=== PATIENT | male | born 1940 | race Caucasian/White ===

== ENCOUNTER 2018-07-06 12:29 | Outpatient (REF) | payer MEDICARE, SELFPAY ==
--- NOTE | 2018-07-06 11:40 | SKI_PTH ---
PATIENT: Ad Dodd LOC: [facility] U#:[id number] AGE/SX: 77/M ROOM: RE07/06/[address]: Jose Luis Bustillo MD : [id number] BED: DIS: 07/06/2018 SPEC #: [id number] RECD: 07/06/18 12:52 STATUS: CANDIE MO #: [id number] LUCIEN: 07/06/18 11:[address]: Jose Luis Bustillo DEPT: Surgical Specimen RECD BY: Chrissie Gaines Tissues: 1 - SKIN BIOPSY(SHAVE/PUNCH) Procedures: SKIN LEVEL 4 Comments: [id number]
== END 2018-07-06 12:49 ==
LOC: LBN 12:29
PROVIDERS: PCP Family Medicine; Visit Provider Family Medicine
DX: L82.1 Other seborrheic keratosis (principal)
CPT/HCPCS: 88305

== ENCOUNTER 2018-09-12 12:07 | Outpatient (CLI) | payer MEDICARE, SELFPAY ==
--- NOTE | 2018-09-12 11:18 | DI.RAD_ITS ---
SYMPTOM/DIAGNOSIS: LT SHOULDER PAIN LEFT SHOULDER: There is spurring at the AC joint and glenoid as well as at the greater tuberosity of the humerus. Prominent spurring is seen at the lesser tuberosity. No tendon or joint space calcifications are seen. IMPRESSION: Mild to moderate degenerative changes.
== END 2018-09-12 12:27 ==
PROVIDERS: PCP Family Medicine; Referring Provider Family Medicine; Visit Provider Student in an Organized Health Care Education/Training Program
DX: M25.512 Pain in left shoulder (principal); M19.012 Primary osteoarthritis, left shoulder
CPT/HCPCS: 20610; 99214; 73030; J1040

== ENCOUNTER 2018-10-24 09:49 | Outpatient (CLI) | payer MEDICARE, SELFPAY | END 2018-10-24 10:09 | PROVIDERS: PCP Family Medicine; Referring Provider Family Medicine; Visit Provider Student in an Organized Health Care Education/Training Program | DX: M25.511 Pain in right shoulder (principal); M75.81 Other shoulder lesions, right shoulder; I10 Essential (primary) hypertension | CPT/HCPCS: 99213 ==

== ENCOUNTER → 2018-11-14 13:36 | Outpatient (BNVA) | payer MEDICARE, SELFPAY | PROVIDERS: PCP Family Medicine; Referring Provider Family Medicine; Visit Provider Student in an Organized Health Care Education/Training Program | DX: M75.102 Unspecified rotator cuff tear or rupture of left shoulder, not specified as traumatic (principal); I10 Essential (primary) hypertension | CPT/HCPCS: 99213 ==

== ENCOUNTER → 2019-01-09 12:56 | Outpatient (BNVA) | payer MEDICARE, SELFPAY | PROVIDERS: PCP Family Medicine; Referring Provider Family Medicine; Visit Provider Student in an Organized Health Care Education/Training Program | DX: M75.102 Unspecified rotator cuff tear or rupture of left shoulder, not specified as traumatic (principal); M47.816 Spondylosis without myelopathy or radiculopathy, lumbar region; S46.112A Strain of muscle, fascia and tendon of long head of biceps, left arm, initial encounter; X58.XXXA Exposure to other specified factors, initial encounter; I10 Essential (primary) hypertension | CPT/HCPCS: 99213 ==

== ENCOUNTER 2019-02-09 01:38 | Outpatient (CLI) | payer MEDICARE, SELFPAY ==
--- NOTE | 2019-02-09 08:54 | DI.US_ITS ---
EXAM: US ABDOMEN CLINICAL HISTORY: upper abdominal fullness with pain R10.10 TECHNIQUE: Ultrasound performed using standard protocol. COMPARISON: ABD PELVIS WITH CONTRAST from 05/31/2017 FINDINGS: The aorta is normal in diameter where visualized. There are aortic calcifications. Multiple shadowi ng stones are noted in the gallbladder. There is no abnormal gallbladder distention. There is borde rline wall thickening. There is no pericholecystic fluid. The gallbladder neck is shattered by gall stones. No biliary dilatation is seen. A 2.1 centimeter cyst is seen at the upper pole of the left kidney. There is no evidence of hydronephrosis. No stones are visible. The spleen is at the upper l imits in size and shows normal configuration. IMPRESSION: Cholelithiasis and borderline gallbladder wall thickening. No definite evidence of acute cholecystit is.
[2019-02-09 10:20] LABS: Abs Immature Grans 0.02 k/cumm (0.0-0.09); Absolute Basophil Count 0.02 k/cumm (0.0-0.2); Absolute Eosinophil Count 0.08 k/cumm (0.0-0.7); Absolute Lymphocyte Count 1.37 k/cumm (1.2-3.4); Absolute Monocyte Count 0.53 k/cumm (0.11-0.7); Absolute Neutrophil Count 3.24 k/cumm (1.2-6.7); Basophils % 0.4; Eosinophils % 1.5; HCT 43.3 % (40.0-50.0); Immature Grans % 0.4; Mean Corp. HGB Concentration 34.6 g/dL (32.0-36.0); Mean Corpuscular Hemoglobin 32.1 pg (27.0-33.0); Mean Corpuscular Volume 92.7 fL (80-95); Monocytes % 10.1; Neutrophils % 61.6; Platelet Count 170 x1000/uL (130-400); RBC 4.67 m/cumm (4.50-6.00); RBC Distribution Width 12.7 % (11.8-14.1); White Blood Cell Count 5.26 k/cumm (4.4-10.8)
[2019-02-09 11:55] LABS: ALT 19 U/L (16-63); AST 20 U/L (15-37); Albumin 3.8 g/dL (3.4-5.0); Alkaline Phosphatase 60 U/L (46-116); Anion Gap 13.9 mmol/L (3-11); BUN 17 mg/dL (7-18); Bilirubin, Total 1.2 mg/dL (0.2-1.0); CO2 22.1 mmol/L (21.0-32.0); CREATININE 1.12 mg/dL (0.70-1.30); Calcium 8.8 mg/dL (8.5-10.1); Chloride 104 mmol/L (98-107); Glucose 84 mg/dL (70-100); Potassium 4.7 mmol/L (3.5-5.1); Sodium 140 mmol/L (136-145); TSH (W/Ref FT4) 1.56 uIU/mL (0.36-3.74); Total Protein 6.8 g/dL (6.4-8.2)
== END 2019-02-09 01:58 ==
PROVIDERS: PCP Family Medicine; Visit Provider Family Medicine
DX: R10.10 Upper abdominal pain, unspecified (principal); R19.8 Other specified symptoms and signs involving the digestive system and abdomen; R49.0 Dysphonia; K80.20 Calculus of gallbladder without cholecystitis without obstruction
CPT/HCPCS: 36415; 80053; 76700; 84443; 85025

== ENCOUNTER 2019-02-10 19:20 | Observation (INO) | payer MEDICARE, SELFPAY ==
[2019-02-10 19:21] VITALS: BP 156/60; PULSE 77; RESP 18; TEMP 36.8; O2SAT 100
[2019-02-10 19:27] VITALS: RESP 18
--- NOTE | 2019-02-10 19:36 | NUR.NOTE ---
PATRICIA Stephenson from home with c/o chest pain. Pt reports midsternal chest heaviness x 20 min. Non-radiating. Reports associated dizziness and diaphoresis. relieved with 1 nitro. Hx of 3 stents. SR on monitor, irregular. #18 RAC, labs drawn. LSCTA. Pt reports had labs and US done today for 1.5 months of pain after eating. MD Hightower in to brittney.
[2019-02-10 19:50] LABS: Abs Immature Grans 0.01 k/cumm (0.0-0.09); Absolute Basophil Count 0.01 k/cumm (0.0-0.2); Absolute Eosinophil Count 0.13 k/cumm (0.0-0.7); Absolute Lymphocyte Count 1.81 k/cumm (1.2-3.4); Absolute Monocyte Count 0.55 k/cumm (0.11-0.7); Absolute Neutrophil Count 3.76 k/cumm (1.2-6.7); Basophils % 0.2; Eosinophils % 2.1; HCT 42.4 % (40.0-50.0); HGB 14.6 g/dL (13.5-17.5); Immature Grans % 0.2; Lymphocytes % 28.9; Mean Corp. HGB Concentration 34.4 g/dL (32.0-36.0); Mean Corpuscular Hemoglobin 32.4 pg (27.0-33.0); Mean Platelet Volume 10.1 fL (8.0-11.0); Monocytes % 8.8; Neutrophils % 59.8; Platelet Count 190 x1000/uL (130-400); RBC 4.51 m/cumm (4.50-6.00); RBC Distribution Width 12.8 % (11.8-14.1); White Blood Cell Count 6.27 k/cumm (4.4-10.8)
[2019-02-10 20:00] VITALS: BP 115/74; PULSE 70; RESP 15; O2SAT 97
[2019-02-10 20:03] LABS: ALT 46 U/L (16-63); AST 68 U/L (15-37); Albumin 3.8 g/dL (3.4-5.0); Alkaline Phosphatase 75 U/L (46-116); Anion Gap 7.2 mmol/L (3-11); BUN 22 mg/dL (7-18); Bilirubin, Total 0.5 mg/dL (0.2-1.0); CO2 27.8 mmol/L (21.0-32.0); CREATININE 1.25 mg/dL (0.70-1.30); Calcium 8.9 mg/dL (8.5-10.1); Chloride 107 mmol/L (98-107); Estimated GFR 56.01 (mL/min/1.73m2); Glucose 100 mg/dL (70-100); Sodium 142 mmol/L (136-145); Total Protein 7.2 g/dL (6.4-8.2)
[2019-02-10 20:04] LABS: Troponin I < 0.05 ng/mL (0.00-0.06)
[2019-02-10 20:05] LABS: Lipase 194 U/L (73-393)
--- NOTE | 2019-02-10 20:40 | W.ED.GENAD ---
Discharge Plan Disposition Patient Disposition: [facility] INPATIENT Discharge Details Chief Complaint: Chest Pain Clinical Impression: Chest pain Primary Care Provider: Jose Luis Bustillo ED Provider: Mervin Hightower Home Meds and New Rx's Prescriptions: No Action nitroglycerin 0.4 MG tablet, sublingual 0.4 mg Sublingual q 5 mins prn Qty: 25 RF: 0 omeprazole 40 mg capsule,delayed release(DR/EC) 40 mg PO BID 90 Days Qty: 180 RF: 3 metoprolol tartrate 25 mg tablet 25 mg PO BID Qty: 90 RF: 4 pravastatin [Pravachol] 20 mg tablet 20 mg PO DAILY Qty: 90 RF: 4 Medical Decision Making 21:00 -- 78-year-old male with history of coronary artery disease status post stenting in 2007, GERD, hypertension, hyperlipidemia, presents with mid chest pain, improved after sublingual nitro. Patient has had recent intermittent postprandial epigastric abdominal fullness and discomfort. Currently pain-free. ECG was reviewed and interpreted by me: Sinus rhythm 74 bpm with frequent PACs, normal axis, no STEMI, nondiagnostic. Ultrasound of the abdomen from 02/09/2019 was interpreted by radiology: IMPRESSION: Cholelithiasis and borderline gallbladder wall thickening. No definite evidence of acute cholecystitis. Initial labs reviewed including first troponin negative. Consider ACS versus thoracic aortic dissection versus GERD versus other. Plan to obtain CTA of the chest/abd. --Patient did have a run of regular, narrow complex, tacky arrhythmia at approximately 150 bpm, rhythm strip was reviewed and concerning for SVT. 10:24 --Case is discussed with Dr. Mora, on-call hospitalist, who is here evaluating the patient for admission. Care transitioned to Dr. Mora. Official CTA result pending at time of admission. HPI General Mode of arrival: EMS. Date/Time Provider Initiated Documentation: 02/10/19 19:38. Limitations to Documentation: no limitations. Information obtained by: patient. HPI Narrative: 78-year-old male with history of coronary artery disease status post stenting in 2007 presents with chief complaint of chest pain. Pain started this evening around 6 PM after eating dinner. Pain localized to central chest described as a heavy, pressure. Pain was moderate to severe. Pain lasted approximately 20 to 30 minutes. He did take sublingual nitroglycerin and pain seemed to resolve thereafter. Patient has no pain on arrival. No associated nausea or shortness of breath. Patient also states that recently over the past couple months he has had intermittent postprandial fullness in his epigastric abdomen. He notes he is felt bloated . He saw his primary care physician about this recently and had an outpatient abdominal ultrasound performed yesterday. Related Data Home Medications Medication Instructions Recorded Confirmed nitroglycerin 0.4 mg SUBLINGUAL q 5 mins prn #25 07/15/16 02/10/19 tab-cap omeprazole 40 mg capsule,delayed 40 mg PO BID 90 Days #180 tab-cap 06/29/18 02/10/19 release metoprolol tartrate 25 mg tablet 25 mg PO BID #90 tab 07/06/18 02/10/19 pravastatin 20 mg tablet 20 mg PO DAILY #90 tab 08/25/18 02/10/19 Previous Rx's Medication Instructions Recorded omeprazole 40 mg capsule,delayed 40 mg PO BID 90 Days #180 tab-cap 06/29/18 release metoprolol tartrate 25 mg tablet 25 mg PO BID #90 tab 07/06/18 pravastatin 20 mg tablet 20 mg PO DAILY #90 tab 08/25/18 Allergies Allergy/AdvReac Type Severity Reaction Status Date / Time clopidogrel Allergy Severe RASH Unverified 02/07/19 14:30 tamsulosin AdvReac Intermediate Dizziness Unverified 02/07/19 14:30 simvastatin AdvReac Unknown MUSCLE Unverified 02/07/19 14:30 ACHES atorvastatin AdvReac MUSCLE Unverified 02/07/19 14:30 ACHES General Stated Complaint: Chest Pain ALYX: 2 Review of Systems All systems reviewed & are unremarkable except as noted in HPI and below Constitutional Constitutional: Denies fever(s) Cardiovascular Cardiovascular: Reports chest pain and Denies dyspnea Respiratory Respiratory: Denies dyspnea Gastrointestinal Gastrointestinal: Reports as per HPI [facility] Medical History CAD (coronary artery disease) Carotid artery stenosis Diverticulosis Hypertension Lumbar spondylosis (Acute) Surgical History Colonoscopy - MAC (01/06/16) 2009 CYSTECTOMY/BREAST childhood-removal of cyst left breast EGD - MAC (07/23/17) Extraction of cataract 01/08/14; right 07/30/16;left Stent placement 10/03;angina with 3 stents Family History Sister Neoplasm BREAST Son Asthma Daughter No problems noted. Daughter No problems noted. Social History Smoking/Tobacco Use Status: Former Tobacco Use Alcohol Intake: current Alcohol Intake frequency: a few times a week Drug use: Never Substance use type: does not use Pets and animals: No Current gender identity: male What type of physical activity do you participate in: none Madiha/Voodoo: Zoroastrianism Special madiha needs: No Do you feel safe at home: Yes Do you feel safe in your relationship?: Yes Exam Const General: cooperative and no acute distress HENMT Mouth: moist mucous membranes Eyes Conjunctivae: normal conjunctivae Sclera: normal sclerae Neck Neck: no JVD Resp Auscultation: clear to auscultation bilaterally, no rales, no rhonchi and no wheezes Cardio Jugular venous pressure: no JVD Rate: regular rate and not tachycardic Rhythm: regular rhythm GI Palpation: soft, not firm, no guarding, no masses, not rigid and tender in the epigastrum (some discomfort); with no rebound tenderness Auscultation: normal bowel sounds Skin General skin exam: no rashes or lesions noted Neuro General: alert, awake, oriented x3 and tone normal Extrem General: no edema Psych Appearance: grossly normal Course Vital Signs Vital signs: Vital Signs Temperature 36.8 C 02/10/19 19:21 Pulse 77 02/10/19 19:21 Respiratory Rate 18 02/10/19 19:21 Blood Pressure 156/60 H 02/10/19 19:21 Pulse Oximetry 100 02/10/19 19:21 Temperature 36.8 C 02/10/19 19:21 Temperature Source Skin 02/10/19 19:21 Pulse 77 02/10/19 19:21 Respiratory Rate 18 02/10/19 19:27 Respiratory Effort 02/10/19 19:27 Respiratory Depth Normal 02/10/19 19:27 Respiratory Pattern Normal 02/10/19 19:27 Blood Pressure 156/60 H 02/10/19 19:21 Blood Pressure Position Supine 02/10/19 19:21 Pulse Oximetry 100 02/10/19 19:21 Oxygen Delivery Method Room Air 02/10/19 19:21 Oxygen Flow Rate 0 02/10/19 19:21 Pain Level 0 02/10/19 19:21 Lab/Test Results Lab/Test Results: Laboratory Tests Range/Units 02/10/19 02/10/19 02/10/19 19:25 19:25 19:25 WBC (4.4-10.8) k/cumm 6.27 RBC (4.50-6.00) m/cumm 4.51 Hgb (13.5-17.5) g/dL 14.6 Hct (40.0-50.0) % 42.4 MCV (80-95) fL 94.0 MCH (27.0-33.0) pg 32.4 MCHC (32.0-36.0) g/dL 34.4 RDW (11.8-14.1) % 12.8 Plt Count (130-400) x1000/uL 190 MPV (8.0-11.0) fL 10.1 Immature Gran % 0.2 Neutrophils % 59.8 Lymphocytes % 28.9 Monocytes % 8.8 Eosinophils % 2.1 Basophils % 0.2 Absolute Neutrophils (1.2-6.7) k/cumm 3.76 Absolute Lymphocytes (1.2-3.4) k/cumm 1.81 Absolute Monocytes (0.11-0.7) k/cumm 0.55 Absolute Eosinophils (0.0-0.7) k/cumm 0.13 Absolute Basophils (0.0-0.2) k/cumm 0.01 Sodium (136-145) mmol/L 142 Potassium (3.5-5.1) mmol/L 4.0 Chloride (98-107) mmol/L 107 Carbon Dioxide (21.0-32.0) mmol/L 27.8 Anion Gap (3-11) mmol/L 7.2 BUN (7-18) mg/dL 22 H Creatinine (0.70-1.30) mg/dL 1.25 Estimated GFR/1.73 m2 (mL/min/1.73m2) 56.01 Glucose (70-100) mg/dL 100 Calcium (8.5-10.1) mg/dL 8.9 Total Bilirubin (0.2-1.0) mg/dL 0.5 AST (15-37) U/L 68 H ALT (16-63) U/L 46 Alkaline Phosphatase (46-116) U/L 75 Troponin I (0.00-0.06) ng/mL < 0.05 Total Protein (6.4-8.2) g/dL 7.2 Albumin (3.4-5.0) g/dL 3.8 Lipase (73-393) U/L 194
[2019-02-10 21:00] VITALS: BP 118/61; PULSE 68; RESP 16; O2SAT 98
[2019-02-10] MEDS: Omnipaque 350 MG/ML 100 ML BTL IJ (21:40)
--- NOTE | 2019-02-10 21:41 | DI.CT_ITS ---
EXAM: CT THORAX AND ABD/PEL CTA CLINICAL HISTORY: chest pain, abdominal fullness TECHNIQUE: 100 cc of Omnipaque [address] angiography was performed with multi-slice acquisit ion and multi-planar and/or 3D reconstructions. COMPARISON: ABD AND PELVIS WITH CONTRAST from 05/31/2017 FINDINGS: There is no evidence of pulmonary emboli or aortic dissection. There is left atrial and biventricula r enlargement. Coronary artery calcifications are seen. The lungs appear clear. There is a stable 5 millimeter nodule at the left lung base and a stable 6 millimeter nodule in the right middle lobe. The aorta shows calcification and mild mural thrombus but no evidence of an aneurysm. There is no si gnificant reduction in luminal diameter of the aorta or iliac arteries. Celiac, SMA and renal arteri es show no occlusion or significant stenosis. Liver shows mild fatty infiltration. The gallbladder, spleen, pancreas and adrenals are unremarkable. There is a cyst at the upper pole of the right kidn ey. There is no evidence of hydronephrosis. The prostate is enlarged. The bladder is unremarkable. The appendix appears normal. There is diverticulosis of the sigmoid but no evidence of diverticulit is. There is no free air, free fluid or adenopathy. There are no spinal compression fractures. Ost eophytes are noted throughout the spine. IMPRESSION: No evidence of pulmonary emboli, aortic dissection or other acute abnormality.
[2019-02-10 22:18] VITALS: BP 115/66; PULSE 73; RESP 16; O2SAT 99
--- NOTE | 2019-02-10 22:35 | HPE_ITS ---
Date of service: 02/10/19 Time of Service: 22:35 Assessment and Plan Assessment and plan (1) Abdominal pain: Status: Acute Assessment and plan: It is certainly possible that this represents ACS but I think this is doubtful. I think most likely this is either biliary colic or esophageal spasm. Will complete r/o by enzymes, continue PPI and would consider referral to surgery for elective cholycystectomy. I do note that the minimal increase in AST. Could conceivably be reflective of transient biliary obstruction but in any case will just repeat in AM. ADs reviewed with patient, requests DNR. History of Present Illness History of Present Illness Chief Complaint: abdominal pain Narrative: 78 male with remote h/o CAD, s/p stent 2007. . Has been having 2 months of episodic epigastric pain, non-radiating. Typically after meals. U/S done earlier today showed multiple gall stones.Tonight had a severe such episode, no associated naussea or SOB, lasting 1/2 hour. Took old NTG x 2 (no tingling under tongue), pain neventually resolved. Here in ER w/u of note for negative EKG and troponin 1. Informal ER reliminary on CTA of chest is negative. Admitted for r/o. Patient states that pain he has been having -- tonight and otherwise -- is different from the pain he had in 2007 when he was stented. Note brief run SVT here in ER. Asymptomatic and, patient reports, not uncommon for him. Review of Systems All systems reviewed & are unremarkable except as noted in HPI and below PFSH Medical History CAD (coronary artery disease) Carotid artery stenosis Diverticulosis Hypertension Lumbar spondylosis (Acute) Surgical History Colonoscopy - MAC (01/06/16) 2009 CYSTECTOMY/BREAST childhood-removal of cyst left breast EGD - MAC (07/23/17) Extraction of cataract 01/08/14; right 07/30/16;left Stent placement 10/03;angina with 3 stents Family History Sister Neoplasm BREAST Son Asthma Daughter No problems noted. Daughter No problems noted. Social History Smoking/Tobacco Use Status: Former Tobacco Use Alcohol Intake: current Alcohol Intake frequency: a few times a week Drug use: Never Substance use type: does not use Pets and animals: No Current gender identity: male What type of physical activity do you participate in: none Madiha/Restoration: [employer] Special madiha needs: No Do you feel safe at home: Yes Do you feel safe in your relationship?: Yes Meds Home Medications and Allergies Home Medications Medication Instructions Recorded Confirmed Type nitroglycerin 0.4 mg SUBLINGUAL q 5 mins prn #25 07/15/16 02/10/19 History tab-cap omeprazole 40 mg capsule,delayed 40 mg PO BID 90 Days #180 tab-cap 06/29/18 02/10/19 Rx release metoprolol tartrate 25 mg tablet 25 mg PO BID #90 tab 07/06/18 02/10/19 Rx pravastatin 20 mg tablet 20 mg PO DAILY #90 tab 08/25/18 02/10/19 Rx Allergies Allergy/AdvReac Type Severity Reaction Status Date / Time clopidogrel Allergy Severe RASH Unverified 02/07/19 14:30 tamsulosin AdvReac Intermediate Dizziness Unverified 02/07/19 14:30 simvastatin AdvReac Unknown MUSCLE Unverified 02/07/19 14:30 ACHES atorvastatin AdvReac MUSCLE Unverified 02/07/19 14:30 ACHES Exam Narrative Exam Narrative: 115/66, 73, 16, 36.8. HEENT AT/NC; neck supple, w/o JVD; lungs clear; heart RRR w/o m/r/g; abdomen soft and NT; /rectal deferred; extremities w/o edema pulses 2+/=; neuro non-focal. Results Labs Result diagrams: 02/10/19 19:25 02/10/19 19:25 Labs: Laboratory Results - last 24 hr 02/10/19 02/10/19 02/10/19 19:25 19:25 19:25 WBC 6.27 RBC 4.51 Hgb 14.6 Hct 42.4 MCV 94.0 MCH 32.4 MCHC 34.4 RDW 12.8 Plt Count 190 MPV 10.1 Immature Gran % 0.2 Neutrophils % 59.8 Lymphocytes % 28.9 Monocytes % 8.8 Eosinophils % 2.1 Basophils % 0.2 Absolute Neutrophils 3.76 Absolute Lymphocytes 1.81 Absolute Monocytes 0.55 Absolute Eosinophils 0.13 Absolute Basophils 0.01 Sodium 142 Potassium 4.0 Chloride 107 Carbon Dioxide 27.8 Anion Gap 7.2 BUN 22 H Creatinine 1.25 Estimated GFR/1.73 m2 56.01 Glucose 100 Calcium 8.9 Total Bilirubin 0.5 AST 68 H ALT 46 Alkaline Phosphatase 75 Troponin I < 0.05 Total Protein 7.2 Albumin 3.8 Lipase 194 Last Vital Signs Temp 36.8 C 02/10/19 19:21 Pulse 73 02/10/19 22:18 Resp 16 02/10/19 22:18 BP 115/66 02/10/19 22:18 Pulse Ox 99 02/10/19 22:18
--- NOTE | 2019-02-10 22:40 | DI.VRAD_ITS ---
PROCEDURE INFORMATION: Exam: CT Angiography Chest With Contrast Exam date and time: 02/10/2019 8:53 PM Clinical history: 78 years old, male; Chest pain; Radiating; Abdominal pain; Generalized; Prior surgery; Surgery date: 6+ months; Surgery type: Heart stents TECHNIQUE: Imaging protocol: Computed tomographic angiography of the chest with intravenous contrast. 3D rendering: MIP reconstructed images were created and reviewed. Radiation optimization: All CT scans at this facility use at least one of these dose optimization techniques: automated exposure control; mA and/or kV adjustment per patient size (includes targeted exams where dose is matched to clinical indication); or iterative reconstruction. Contrast material: [id number]; Contrast volume: 100 ml; Contrast route: IV RAC 18G; COMPARISON: CR CHEST 2 VIEWS PA,LAT 09/20/2014 8:36 AM FINDINGS: Pulmonary arteries: No pulmonary artery filling defects to the segmental level. Evaluation more distally limited due to suboptimal bolus timing for evaluation of pulmonary artery lumens. Aorta: No aortic aneurysm or dissection. Lungs: There is minimal bibasilar atelectasis. Subpleural 6 mm nodule right middle lobe. 5 mm pleural-based nodule left lung base. Pleural space: No pneumothorax. No pleural effusion Heart: Heart normal in size.There are coronary artery calcifications. Stents suspected in LAD and circumflex vessels. No pericardial effusion. Lymph nodes: Unremarkable. No enlarged lymph nodes. Bones/joints: Unremarkable. No acute fracture. Soft tissues: Unremarkable. IMPRESSION: 1. No evidence of a pulmonary embolism to the segmental level. Evaluation more distally limited. 2. Bilateral lung nodules. The patient is at increased risk for developing lung cancer, followup CT of the chest is recommended in 1 year. PROCEDURE INFORMATION: Exam: CT Angiography Abdomen and Pelvis With Contrast Exam date and time: 02/10/2019 8:53 PM Clinical history: 78 years old, male; Chest pain; Radiating; Abdominal pain; Generalized; Prior surgery; Surgery date: 6+ months; Surgery type: Heart stents TECHNIQUE: Imaging protocol: Computed tomographic angiography of the abdomen and pelvis with intravenous contrast material. 3D rendering: MIP reconstructed images were created and reviewed. Radiation optimization: All CT scans at this facility use at least one of these dose optimization techniques: automated exposure control; mA and/or kV adjustment per patient size (includes targeted exams where dose is matched to clinical indication); or iterative reconstruction. Contrast material: [id number]; Contrast volume: 100 ml; Contrast route: IV RAC 18G; COMPARISON: CR CHEST 2 VIEWS PA,LAT 09/20/2014 8:36 AM FINDINGS: VASCULATURE: Aorta: No aortic aneurysm or dissection. Atherosclerosis. Celiac trunk and mesenteric arteries: No occlusion or significant stenosis. Renal arteries: No occlusion or significant stenosis. Right iliac arteries: No occlusion or significant stenosis. Left iliac arteries: No occlusion or significant stenosis. ABDOMEN and PELVIS: Liver: Hepatomegaly. No mass. Gallbladder and bile ducts: The gallbladder is normal. There is no evidence of biliary ductal dilation. Pancreas: The pancreas is normal. No ductal dilatation. Spleen: The spleen is normal. 1 cm splenule. Adrenals: The adrenal glands are normal. Kidneys and ureters: Simple 2.2 cm cyst left kidney. Lesion too small to characterize in right kidney. Both kidneys concentrate and excrete contrast. No hydronephrosis. Stomach and bowel: Minimal gastric distention. No obstruction. No mucosal thickening. Colonic diverticula. Appendix: No evidence of appendicitis. Intraperitoneal space: Unremarkable. No free air. No significant fluid collection. Lymph nodes: Unremarkable. No enlarged lymph nodes. Bladder: Unremarkable. No mass. Reproductive: Enlarged prostate. Bones/joints: No acute fracture. No dislocation. Mild posterior subluxation of L5 with respect to L4 and S1. The spine demonstrates moderate degenerative changes at multiple levels. Soft tissues: Unremarkable. IMPRESSION: 1. Hepatomegaly. 2. Minimal gastric distention. 3. Colonic diverticula. 4. Enlarged prostate. Dictated and Authenticated by: Arron Ochoa MD. Ordering:LEROY Jeffries MD
[2019-02-10 23:33] LABS: Troponin I < 0.05 ng/mL (0.00-0.06)
[2019-02-10 23:35] VITALS: BP 122/69; PULSE 68; RESP 16; TEMP 36.4; O2SAT 96
--- NOTE | 2019-02-10 23:36 | NUR.NOTE ---
Remains pain free. Report to Freddie. Transported to 230 via stretcher on tele.
[2019-02-11] VITALS (7 sets, daily range): BP systolic 100–148; BP diastolic 67–73; PULSE 62–146; RESP 17–18; TEMP 36.4–37; O2SAT 98–100
[2019-02-11 07:44] LABS: Troponin I < 0.05 ng/mL (0.00-0.06)
[2019-02-11] MEDS: Omeprazole 20 MG CAPCR 40 MG PO (07:51)
[2019-02-11] MEDS: Metoprolol 25 MG TAB PO (07:52)
[2019-02-11 11:02] LABS: Abs Immature Grans 0.01 k/cumm (0.0-0.09); Absolute Basophil Count 0.02 k/cumm (0.0-0.2); Absolute Eosinophil Count 0.11 k/cumm (0.0-0.7); Absolute Lymphocyte Count 1.86 k/cumm (1.2-3.4); Absolute Monocyte Count 0.56 k/cumm (0.11-0.7); Absolute Neutrophil Count 2.99 k/cumm (1.2-6.7); Basophils % 0.4; HCT 43.6 % (40.0-50.0); HGB 14.6 g/dL (13.5-17.5); Immature Grans % 0.2; Lymphocytes % 33.5; Mean Corp. HGB Concentration 33.5 g/dL (32.0-36.0); Mean Corpuscular Hemoglobin 32.1 pg (27.0-33.0); Mean Corpuscular Volume 95.8 fL (80-95); Mean Platelet Volume 10.4 fL (8.0-11.0); Monocytes % 10.1; Neutrophils % 53.8; Platelet Count 165 x1000/uL (130-400); RBC 4.55 m/cumm (4.50-6.00); RBC Distribution Width 13.1 % (11.8-14.1); White Blood Cell Count 5.55 k/cumm (4.4-10.8)
[2019-02-11 11:07] LABS: Anion Gap 6.4 mmol/L (3-11); BUN 19 mg/dL (7-18); CO2 29.6 mmol/L (21.0-32.0); CREATININE 1.02 mg/dL (0.70-1.30); Chloride 106 mmol/L (98-107); Glucose 94 mg/dL (70-100); Magnesium 2.1 mg/dL (1.8-2.4); Potassium 4.4 mmol/L (3.5-5.1); Sodium 142 mmol/L (136-145)
--- NOTE | 2019-02-11 12:30 | DSE_ITS ---
Date of service: 02/11/19 Time of Service: 12:53 DS: Diagnosis Discharge Diagnosis (1) Abdominal pain: Start date: 02/11/19 Start time: 12:53 Status: Acute Asessment and Plan: Resolved last night, refer to surgery for questionable cholithiasis, bilary colic. Will also give maylox with lidocaine for epigastric pain. Discharge Plan Disposition Patient Disposition: HOME Condition: Improving Discharge Details Chief Complaint: Chest Pain Clinical Impression: Chest pain Reason For Visit: ABDOMINAL PAIN Admit Date/Time: 02/10/19 22:50 Admit Provider: Tim Mora Attending Provider: Tim Mora Primary Care Provider: Jose Luis Bustillo ED Provider: Mervin Hightower [facility] Hospital Course: 78 y.o M with PMH CAD s/p stent 2007. Patient was admitted from [facility] Emergency department for epigastric pain. He did have a run of SVT in the ER as well and therefore admitted for further management. EKG was negative. Troponins have been flat negative. He did have several short runs of SVT, which he is on a bb for. He will need an outpatient stress test, which will schedule for him. He denies CP, SOB. Pressure to epigastric area this am, given a combination lidocaine and mylanta with good relief. Abdominal u/s revealing cholelithiasis and borderline gallbladder wall thickening, refer to surgery. Patient will schedule follow up as referral has already been made by primary. Will continue lidocaine and mylanta for home with carafate. CT last night revealed no PE, bilateral lung nodules, increased risk for developing lung ca, follow up CT of chest is recommend in 1 year. Recommend he follow up with Pulmonary for evaluation of lung nodules, this can be done through his primary. He would like to go home he feels well. He denies N/V/D. Home Meds and New Rx's Prescriptions: New sucralfate [Carafate] 1 gram tablet 1 gm PO QAC Qty: 90 RF: 0 Mylanta Maximum Strength 400-400-40 mg/5 mL suspension 5 ml PO QID PRN (Reason: indigestion) Qty: 355 RF: 0 Lidocaine Viscous 2 % solution 1 applic MM QID PRN (Reason: indigestion) Qty: 100 RF: 0 Continued nitroglycerin 0.4 MG tablet, sublingual 0.4 mg Sublingual q 5 mins prn Qty: 25 RF: 0 omeprazole 40 mg capsule,delayed release(DR/EC) 40 mg PO BID 90 Days Qty: 180 RF: 3 metoprolol tartrate 25 mg tablet 25 mg PO BID Qty: 90 RF: 4 pravastatin [Pravachol] 20 mg tablet 20 mg PO DAILY Qty: 90 RF: 4 Discharge Instructions Instructions: Supraventricular Tachycardia (GEN), Cardiac Stress Test (GEN), Biliary Colic (GEN), Gallstones (GEN), Indigestion (GEN), Pulmonary Nodules (GEN) Additional Instructions: Follow up with Surgery. Call and make an appointment. Ask your Primary provider about a follow up with a lung specialist. You were found to have nodules on both lungs. I have referred you for a stress test for this week. They will call you from [facility] to schedule a time. You have been started on carafate. Take it before every meal. You have been given lidocaine and mylanta, you can take it up to 4 times a day as needed for GI upset, pain and indigestion. Seek medical attention immediately if you have Chest pain, Shortness of breath, belly pain that is not relieved by any medication. Stick to a low fat diet as you were found to have gallbladder stones and eating a fatty diet can cause you pain. Stand Alone Forms: Nursing Discharge Form Referrals: Jose Luis Bustillo [Primary Care Provider] - (Please call PCP on Wednesday to schedule follow up appointment.) Activity:: Activity as Tolerated Equipment/Supplies:: No Equipment Needed Diet:: Low fat diet Discharge Orders Discharge Orders: Discharge Order (Routine); Ordered 02/11/19 Ordered By: Nory Cooley Other Ambulatory Orders: NM MPI rest & stress grp (Routine) Timeframe: [id number] Location: None Selected Ordered By: Nory Cooley DS: Summary Status at Discharge Functional status at discharge: independent ambulation Overall status at discharge: patient is back to baseline Mental Status: mental status grossly normal Speech and Movement: speech and movement normal Mood: congruent mood Affect: normal affect Exam Narrative Exam Narrative: Const: Elderly gentleman sitting up in chair eager to go home. HEENT: [place], AT/NC; neck supple, w/o JVD; lungs clear; heart RRR w/o m/r/g; abdomen soft and NT; /rectal deferred; extremities w/o edema pulses 2+/=; neuro non-focal. Psych Mental Status: mental status grossly normal Speech and Movement: speech and movement normal Mood: congruent mood Affect: normal affect DS: Data Vitals/I&O Vitals and I&O: Vital Signs Temperature 36.9 C 02/11/19 07:49 Temperature Source Tympanic 02/11/19 07:49 Pulse 63 02/11/19 11:02 Pulse Rhythm Irregular 02/11/19 07:30 Respiratory Rate 17 02/11/19 07:49 Respiratory Effort Non-Labored 02/11/19 07:30 Respiratory Depth Normal 02/11/19 07:30 Respiratory Pattern Normal 02/11/19 07:30 Blood Pressure 125/72 02/11/19 07:49 Blood Pressure Position Supine 02/10/19 19:21 Pulse Oximetry 100 02/11/19 07:49 Oxygen Delivery Method Room Air 02/11/19 07:49 Oxygen Flow Rate 0 02/11/19 07:49 Pain Level 4 02/11/19 09:05 Intake & Output 02/10/19 02/11/19 02/11/19 23:59 11:59 23:59 Intake Total 570 / 570 Balance 570 / 570 Weight 87.5 kg 87.5 kg Intake: Oral 570 / 570 Other: Urine Color Yellow Urine Appearance Clear Urine Odor Normal Voiding Methods Toilet Data Completed and Pending Completed studies during hospitalization [Text1]: Exam(s) a US:US abdomen EXAM: US ABDOMEN CLINICAL HISTORY: upper abdominal fullness with pain R10.10 TECHNIQUE: Ultrasound performed using standard protocol. COMPARISON: ABD PELVIS WITH CONTRAST from 05/31/2017 FINDINGS: The aorta is normal in diameter where visualized. There are aortic calcifications. Multiple shadowing stones are noted in the gallbladder. There is no abnormal gallbladder distention. There is borderline wall thickening. There is no pericholecystic fluid. The gallbladder neck is shattered by gallstones. No biliary dilatation is seen. A 2.1 centimeter cyst is seen at the upper pole of the left kidney. There is no evidence of hydronephrosis. No stones are visible. The spleen is at the upper limits in size and shows normal configuration. IMPRESSION: Cholelithiasis and borderline gallbladder wall thickening. No definite evidence of acute cholecystitis. Exam(s) PROCEDURE INFORMATION: Exam: CT Angiography Chest With Contrast Exam date and time: 02/10/2019 8:53 PM Clinical history: 78 years old, male; Chest pain; Radiating; Abdominal pain; Generalized; Prior surgery; Surgery date: 6+ months; Surgery type: Heart stents TECHNIQUE: Imaging protocol: Computed tomographic angiography of the chest with intravenous contrast. 3D rendering: MIP reconstructed images were created and reviewed. Radiation optimization: All CT scans at this facility use at least one of these dose optimization techniques: automated exposure control; mA and/or kV adjustment per patient size (includes targeted exams where dose is matched to clinical indication); or iterative reconstruction. Contrast material: [id number]; Contrast volume: 100 ml; Contrast route: IV RAC 18G; COMPARISON: CR CHEST 2 VIEWS PA,LAT 09/20/2014 8:36 AM FINDINGS: Pulmonary arteries: No pulmonary artery filling defects to the segmental level. Evaluation more distally limited due to suboptimal bolus timing for evaluation of pulmonary artery lumens. Aorta: No aortic aneurysm or dissection. Lungs: There is minimal bibasilar atelectasis. Subpleural 6 mm nodule right middle lobe. 5 mm pleural-based nodule left lung base. Pleural space: No pneumothorax. No pleural effusion Heart: Heart normal in size.There are coronary artery calcifications. Stents suspected in LAD and circumflex vessels. No pericardial effusion. Lymph nodes: Unremarkable. No enlarged lymph nodes. Bones/joints: Unremarkable. No acute fracture. Soft tissues: Unremarkable. IMPRESSION: 1. No evidence of a pulmonary embolism to the segmental level. Evaluation more distally limited. 2. Bilateral lung nodules. The patient is at increased risk for developing lung cancer, followup CT of the chest is recommended in 1 year. Labs on day of discharge: Labs from last 24 hours 02/11/19 02/11/19 02/11/19 07:00 07:00 06:35 WBC 5.55 RBC 4.55 Hgb 14.6 Hct 43.6 MCV 95.8 H MCH 32.1 MCHC 33.5 RDW 13.1 Plt Count 165 MPV 10.4 Immature Gran % 0.2 Neutrophils % 53.8 Lymphocytes % 33.5 Monocytes % 10.1 Eosinophils % 2.0 Basophils % 0.4 Absolute Neutrophils 2.99 Absolute Lymphocytes 1.86 Absolute Monocytes 0.56 Absolute Eosinophils 0.11 Absolute Basophils 0.02 Sodium 142 Potassium 4.4 Chloride 106 Carbon Dioxide 29.6 Anion Gap 6.4 BUN 19 H Creatinine 1.02 Estimated GFR/1.73 m2 >= 60.00 Glucose 94 Calcium 9.0 Magnesium 2.1 Total Bilirubin AST ALT Alkaline Phosphatase Troponin I < 0.05 Total Protein Albumin Lipase 02/10/19 02/10/19 02/10/19 23:12 19:25 19:25 WBC 6.27 RBC 4.51 Hgb 14.6 Hct 42.4 MCV 94.0 MCH 32.4 MCHC 34.4 RDW 12.8 Plt Count 190 MPV 10.1 Immature Gran % 0.2 Neutrophils % 59.8 Lymphocytes % 28.9 Monocytes % 8.8 Eosinophils % 2.1 Basophils % 0.2 Absolute Neutrophils 3.76 Absolute Lymphocytes 1.81 Absolute Monocytes 0.55 Absolute Eosinophils 0.13 Absolute Basophils 0.01 Sodium Potassium Chloride Carbon Dioxide Anion Gap BUN Creatinine Estimated GFR/1.73 m2 Glucose Calcium Magnesium Total Bilirubin AST ALT Alkaline Phosphatase Troponin I < 0.05 Total Protein Albumin Lipase 194 02/10/19 19:25 WBC RBC Hgb Hct MCV MCH MCHC RDW Plt Count MPV Immature Gran % Neutrophils % Lymphocytes % Monocytes % Eosinophils % Basophils % Absolute Neutrophils Absolute Lymphocytes Absolute Monocytes Absolute Eosinophils Absolute Basophils Sodium 142 Potassium 4.0 Chloride 107 Carbon Dioxide 27.8 Anion Gap 7.2 BUN 22 H Creatinine 1.25 Estimated GFR/1.73 m2 56.01 Glucose 100 Calcium 8.9 Magnesium Total Bilirubin 0.5 AST 68 H ALT 46 Alkaline Phosphatase 75 Troponin I < 0.05 Total Protein 7.2 Albumin 3.8 Lipase [facility] Medical History CAD (coronary artery disease) Carotid artery stenosis Diverticulosis Hypertension Lumbar spondylosis (Acute) Surgical History Colonoscopy - MAC (01/06/16) 2009 CYSTECTOMY/BREAST childhood-removal of cyst left breast EGD - MAC (07/23/17) Extraction of cataract 01/08/14; right 07/30/16;left Stent placement 10/03;angina with 3 stents Family History Sister Neoplasm BREAST Son Asthma Daughter No problems noted. Daughter No problems noted. Social History Smoking/Tobacco Use Status: Former Tobacco Use Alcohol Intake: current Alcohol Intake frequency: a few times a week Drug use: Never Substance use type: does not use Pets and animals: No Current gender identity: male What type of physical activity do you participate in: none Madiha/Yazidi: Bahai Special madiha needs: No Do you feel safe at home: Yes Do you feel safe in your relationship?: Yes
== END 2019-02-11 14:06 | disposition home or self-care (01) ==
LOC: ER 23:13 → MS 23:45
PROVIDERS: Nurse Practitioner Family; Admitting Provider General Practice; Emergency Provider Student in an Organized Health Care Education/Training Program; PCP Family Medicine; Visit Provider Internal Medicine
DX: R10.13 Epigastric pain (principal); I47.1 Supraventricular tachycardia; K80.20 Calculus of gallbladder without cholecystitis without obstruction; Z23 Encounter for immunization
CPT/HCPCS: 36415; 71275; 74177; 80048; 80053; 83690; 93005; 99222; 99239; 99285; 83735; 84484; 85025; 93010; 99217; 99218; G0378; J3490

== ENCOUNTER 2019-02-16 02:06 | Outpatient (CLI) | payer MEDICARE, SELFPAY ==
--- NOTE | 2019-02-16 09:15 | DI.NM_ITS ---
APPROVED REPORT Exam: Pharmacologic Patient Location: Out-Patient Room/Bed: Stress Nurse: Alexus Hunt RN BMI: 284.24 Baseline Rhythm: Sinus rhythm with PACs. Indications: SVT. CAD. Medical History Cardiac Medications: Pravastatin, Nitroglycerin, Metoprolol, Omeprazole, Allergies: clopidegrel. tamsulosin. simvastatin. atorvastatin. Cardiac Risk Factors: Cardiac stents x3 in 2007, CAD, SVT, HTN, Hyperlipidemia, CVD, former smoker Previous Cardiac Procedures: PCI Pretest Chest Pain Characteristics: No chest pain Physical Disabilities: Legs Lung Sounds: Clear to auscultation Heart Sounds: Regular Stress Test Details Test: Pharmacologic stress testing performed using 0.4 mg of regadenoson per 5 mL given IV over 10 s econds. Nuclear Acquisition: Rest Tc-99m/Stress Tc-99m 1 day Rest Isotope: Tc-99m Sestamibi. Dose: 11.0 Date: 02/16/2019 Injection Time: 0945 Stress Isotope: Tc-99m Sestamibi. Dose: 33.3 Date: 02/16/2019 Injection Time: 1130 HR Resting HR: 60 bpm Max Heart Rate (APMHR): 143 bpm Resting HR Supine: 60 bpm Target HR (85% APMHR): 121 bpm Max HR Achieved: 83 bpm % of APMHR: 58 Recovery HR: 75 bpm BP Resting BP: 154/80 mmHg Resting BP Supine: 154/80 mmHg Max BP: 168/80 mmHg Recovery BP: 150/80 mmHg ECG Resting ECG: Sinus Rhythm with PACs. Ectopy: PACs. Stress ECG: Sinus Rhythm with PACs. ST Change: No significant ST segment changes Recovery ECG: Sinus Rhythm Recovery ST Change: Sinus Rhythm with PACs. Stress ECG Conclusion 1. There is no evidence of stress induced ischemia on the ECG portion of the exam Protocol Used: Regadenoson Stress Test Summary STAGE HR BP Symptoms NOTES Supine 60 154/80 Standing 1 min 69 168/84 2 min 3 min 83 138/80 4 min 5 min 6 min 75 150/80 7 min 8 min 9 min 10 min 1 min recovery 3 min recovery 6 min recovery MPI Conclusion There is no significant ischemia on the imaging portion of this exam Ejection fraction with stress is 46% This represents a normal SPECT exam.
[2019-02-16] MEDS: Regadenoson 0.4 MG/5 ML SYR IVP (11:02)
== END 2019-02-16 02:26 ==
PROVIDERS: PCP Family Medicine; Visit Provider Internal Medicine
DX: I25.10 Atherosclerotic heart disease of native coronary artery without angina pectoris (principal); I47.1 Supraventricular tachycardia; I10 Essential (primary) hypertension; E78.5 Hyperlipidemia, unspecified; Z95.5 Presence of coronary angioplasty implant and graft; Z87.891 Personal history of nicotine dependence
CPT/HCPCS: 78452; 93016; 93018; 93017; J2785

== ENCOUNTER → 2019-02-20 10:45 | Outpatient (BNVA) | payer MEDICARE, SELFPAY | PROVIDERS: PCP Family Medicine; Referring Provider Family Medicine; Visit Provider Surgery | DX: K80.20 Calculus of gallbladder without cholecystitis without obstruction (principal); I10 Essential (primary) hypertension; R49.0 Dysphonia | CPT/HCPCS: 99214 ==

== ENCOUNTER 2019-03-14 07:47 | Day surgery (SDC) | payer MEDICARE, SELFPAY ==
[2019-03-14] VITALS (10 sets, daily range): BP systolic 84–131; BP diastolic 30–86; PULSE 54–63; RESP 13–19; TEMP 36.2–36.8; O2SAT 95–100
[2019-03-14] MEDS: Lactated Ringers 1,000 ML 80 ML IV ×2 (08:38→10:49)
[2019-03-14] MEDS: ceFAZolin 2 GM/50 ML BAG IVPB (09:44)
--- NOTE | 2019-03-14 10:40 | GB_PTH ---
PATIENT: Ad Dodd LOC: [facility] U#:[id number] AGE/SX: 78/M ROOM: RE03/14/[address]: Laura Cheema MD : [id number] BED: DIS: 03/14/2019 SPEC #: [id number] RECD: 03/14/19 13:00 STATUS: CANDIE REFili #: [id number] LUCIEN: 03/14/19 10:[address]: Laura Cheema DEPT: Surgical Specimen RECD BY: Chrissie Gaines ENTERED: 03/14/19 13:01 SP TYPE: GB OTHR DR: Jose Luis Bustillo MD Tissues: 1 - GALLBLADDER Procedures: GROSS AND MICRO LEVEL 3 Comments: [id number]
--- NOTE | 2019-03-14 10:53 | W.PM.DSUDISC ---
Discharge Plan Disposition Patient Disposition: HOME Condition: Good Discharge Details Reason For Visit: Laparoscopic cholecystectomy Attending Provider: Laura Cheema Primary Care Provider: Jose Luis Bustillo Home Meds and New Rx's Prescriptions: New hydrocodone-acetaminophen 5-325 mg Tablet 1 tab PO Q4H PRN (Reason: Pain) Qty: 15 RF: 0 Continued sucralfate [Carafate] 1 gram tablet 1 gm PO QAC RF: 0 azithromycin 250 mg tablet See Rx Instructions PO .COMPLEX Qty: 6 RF: 0 metoprolol tartrate 25 mg tablet 25 mg PO BID Qty: 90 RF: 4 pravastatin [Pravachol] 20 mg tablet 20 mg PO DAILY Qty: 90 RF: 4 nitroglycerin 0.4 mg tablet, sublingual 0.4 mg Sublingual q 5 mins prn Qty: 25 RF: 5 omeprazole 40 mg capsule,delayed release(DR/EC) 40 mg PO DAILY RF: 0 Discharge Instructions Additional Instructions: The top bandage can be removed tomorrow. The steri strips will usually stick for about a week. When the edges start to curl up, they can be removed. It is okay to shower tomorrow, the water can run over the steri strips Do not swim or soak in a tub for two weeks Call for any concerns including fever, increased pain, vomiting, incision redness or drainage. Do not lift more than 15 pounds for two weeks. Walking and stairs are fine. Do not drive if on narcotic pain meds or if limited by pain. May use Tylenol alternating with ibuprofen for pain control. Ice is also an option. The maximum dose for Tylenol is 4000 mg/day. May use ibuprofen 800 mg every 8 hours as needed. If concerned about constipation, you may use a stool softener or milk of magnesia. Referrals: Laura Cheema MD [ [facility] STAFF PHYSICIAN] - (Return in 10-14 days for a postop visit) Activity:: Do not lift more than 15 pounds Remove Dressings/Wound Care:: 24 hours Shower/Bathe:: 24 hours Diet:: Low fat for two weeks Discharge Orders Discharge Orders: Discharge Order (Routine); Ordered 03/14/19 Ordered By: Laura Cheema DS: Diagnosis Discharge Diagnosis (1) Cholelithiases: Status: Acute
[2019-03-14] MEDS: ACETAMINOPHEN 1,000 MG/100 ML BTL 400 MG IVPB (11:50)
--- NOTE | 2019-03-16 10:10 | ROE_ITS ---
DATE OF PROCEDURE March 14, 2019 PREOPERATIVE DIAGNOSIS Symptomatic cholelithiasis. POSTOPERATIVE DIAGNOSIS Symptomatic cholelithiasis. PROCEDURE Laparoscopic cholecystectomy. SURGEON Laura Cheema M.D. LADLE PATCHER Briana Maloney PA-C ANESTHESIA Local and General. INDICATIONS This is a 78-year-old man who presented recently with significant substernal pain. He had a negative cardiac evaluation. Gallbladder ultrasound showed evidence of stones with a mildly thickened wall. He had normal LFTs. He had also had a normal CTA of the chest, abdomen and pelvis. PROCEDURE DESCRIPTION The patient was placed supine on the operating table and under general anesthetic, was prepped and dr aped sterilely. A 5-mm incision was made just below and to the left of the umbilicus and the abdomen entered under direct visualization. A CO2 pneumoperitoneum was begun, and he was placed in reverse Trendelenburg position. The epigastric and two lateral ports were placed after injecting local anesthetic under direct visual ization. The gallbladder was not acutely inflamed. The fundus was pulled up over the liver and a few omental adhesions taken down with hook cautery. The infundibulum was retracted laterally. The perit oneum overlying the triangle Calot was dissected free with diaz cautery to expose the cystic artery. This was visualized going directly onto the gallbladder and was clipped twice proximally, once distal ly and divided. The cystic duct was isolated and visualized going directly onto the gallbladder. Thi s was palpated with no stones noted within it. It was perhaps slightly dilated, but the typical clip fireproof door maker did have clips large enough to completely encompass the duct. The cystic duct was clipped tw ice distally and once proximally and divided. I did have a critical view. The gallbladder was then di ssected off the liver bed with hook cautery. Inspection of the operative site revealed no bleeding or bile leak. The gallbladder was removed through the epigastric incision in an EndoCatch bag. I did alonzo ve to extend the incision slightly to allow for passage of the gallbladder, which had numerous stones within it. The ports were inspected with no evidence of bleeding. The CO2 was released and the ports removed. The skin and all port sites were closed with a #4-0 Monocryl subcuticular stitch. He tolera pepito the procedure well and was stable to recovery. CC: Jose Luis Bustillo M.D.
== END 2019-03-14 13:57 | disposition home or self-care (01) ==
PROVIDERS: PCP Family Medicine; Visit Provider Surgery
PROC: 0FT44ZZ Resection of Gallbladder, Percutaneous Endoscopic Approach (ICD-10-PCS; CPT 47562; principal; 2019-03-14 09:00)
DX: K80.10 Calculus of gallbladder with chronic cholecystitis without obstruction (principal); I10 Essential (primary) hypertension; K21.9 Gastro-esophageal reflux disease without esophagitis
CPT/HCPCS: 47562; 88304; J0131; J0690; J1100; J2405; J3010

== ENCOUNTER → 2019-03-24 11:14 | Outpatient (BNVA) | payer MEDICARE, SELFPAY | PROVIDERS: PCP Family Medicine; Referring Provider Family Medicine; Visit Provider Physical Therapy Assistant | DX: Z48.815 Encounter for surgical aftercare following surgery on the digestive system (principal); Z90.49 Acquired absence of other specified parts of digestive tract; I10 Essential (primary) hypertension ==

== ENCOUNTER 2019-10-04 08:43 | Outpatient (CLI) | payer MEDICARE, SELFPAY | END 2019-10-04 09:03 | PROVIDERS: PCP Family Medicine; Visit Provider Internal Medicine Cardiovascular Disease | DX: I47.1 Supraventricular tachycardia (principal) | CPT/HCPCS: 93005; 93010 ==

== ENCOUNTER → 2019-10-04 08:50 | Outpatient (BNVA) | payer MEDICARE, SELFPAY | PROVIDERS: PCP Family Medicine; Referring Provider Family Medicine; Visit Provider Internal Medicine Cardiovascular Disease | DX: I47.1 Supraventricular tachycardia (principal); I25.10 Atherosclerotic heart disease of native coronary artery without angina pectoris; I10 Essential (primary) hypertension; I49.8 Other specified cardiac arrhythmias; G20 Parkinson's disease | CPT/HCPCS: 99203; 99214; 93005 ==

== ENCOUNTER 2019-10-05 11:37 | Outpatient (CLI) | payer MEDICARE, SELFPAY ==
--- NOTE | 2019-11-10 08:43 | W.CARDEVENT ---
Date of service: 11/10/19 Time of Service: 08:43 Cardiac Event Recorder Referring Provider:: Suzie Indications:: SVT Cardiac Event Note: This is a 30-day event monitor ordered for indication of supraventricular tachycardia. ?The patient was in normal sinus rhythm for the majority of the recording with a baseline heart rate of 64 bpm. ?There were 45 total triggers during the 30-day monitor. 31 of these were automatically detected. The majority of detected events were due to PACs. ?The patient had multiple episodes of SVT as well as NSVT with the longest episode lasting 13 beats. ?Patient triggered events were associated with sinus rhythm, sinus arrhythmia, PACs as well as SVT.
== END 2019-10-05 11:57 ==
PROVIDERS: PCP Family Medicine; Visit Provider Internal Medicine Cardiovascular Disease
DX: I47.1 Supraventricular tachycardia (principal); I49.1 Atrial premature depolarization
CPT/HCPCS: 93270

== ENCOUNTER 2019-11-10 08:43 | Outpatient (CLI) | payer MEDICARE, SELFPAY | END 2019-11-10 09:03 | PROVIDERS: PCP Family Medicine; Referring Provider Internal Medicine Cardiovascular Disease; Visit Provider Internal Medicine Cardiovascular Disease | DX: I47.1 Supraventricular tachycardia (principal); I49.1 Atrial premature depolarization | CPT/HCPCS: 93272 ==

== ENCOUNTER → 2019-11-16 13:21 | Outpatient (BNVA) | payer MEDICARE, SELFPAY | PROVIDERS: PCP Family Medicine; Referring Provider Family Medicine; Visit Provider Internal Medicine Cardiovascular Disease | DX: I25.110 Atherosclerotic heart disease of native coronary artery with unstable angina pectoris (principal); I49.8 Other specified cardiac arrhythmias; I10 Essential (primary) hypertension | CPT/HCPCS: 99213 ==

== ENCOUNTER 2020-01-18 04:04 | Outpatient (CLI) | payer MEDICARE, SELFPAY ==
[2020-01-18 09:00] LABS: Bilirubin Negative (Negative); Blood Small (Negative); Clarity Clear (Clear); Glucose Negative (Negative); Ketones Negative (Negative); Leukocyte Esterase Negative (Negative); Nitrite Negative (Negative); Specific Gravity >= 1.030 (1.005-1.025); Urobilinogen 0.2 EU/dL (Up TO 0.2); pH 5.5 (5-8)
[2020-01-18 09:06] LABS: Abs Immature Grans 0.03 10^3/uL (0.0-0.06); Absolute Basophil Count 0.04 10^3/uL (0.0-0.2); Absolute Eosinophil Count 0.16 10^3/uL (0.0-0.7); Absolute Lymphocyte Count 1.92 10^3/uL (1.2-3.4); Absolute Monocyte Count 0.66 10^3/uL (0.1-0.8); Absolute Neutrophil Count 3.86 10^3/uL (1.2-6.7); Basophils % 0.6; Eosinophils % 2.4; HCT 45.2 % (40.0-50.0); HGB 15.6 g/dL (13.5-17.5); Immature Grans % 0.4; Lymphocytes % 28.8; MCH 33.5 pg (27.0-33.0); MCHC 34.5 % (32.0-36.0); MCV 97.2 fL (80-95); MPV 10.2 fL (8.0-11.0); Monocytes % 9.9; Neutrophils % 57.9; Nucleated RBC 0 %; Platelet Count 152 10^3/uL (130-400); RBC 4.65 10^6/uL (4.36-5.78); RDW 12.4 % (11.8-14.1); RDW-SD 44.2 fL; WBC 6.67 10^3/uL (4.4-10.8)
[2020-01-18 09:08] LABS: WBC 0-2 HPF (0-5)
[2020-01-18 09:09] LABS: Bacteria Rare HPF (Negative); C & S Indicated? No; Casts 0-2 Hyaline LPF (Negative); Crystals Negative HPF (Negative); Epithelial Cells Rare HPF (Negative); Mucus Trace (Negative)
[2020-01-18 10:13] LABS: ALT 26 U/L (16-63); AST 18 U/L (15-37); Albumin 3.8 g/dL (3.4-5.0); Alkaline Phosphatase 68 U/L (46-116); Anion Gap 6.8 mmol/L (3-11); BUN 19 mg/dL (7-18); Bilirubin, Total 0.8 mg/dL (0.2-1.0); CO2 29.2 mmol/L (21.0-32.0); CREATININE 1.08 mg/dL (0.70-1.30); Calcium 8.8 mg/dL (8.5-10.1); Calculated LDL 95 mg/dL (<100); Chloride 105 mmol/L (98-107); Cholesterol 160 mg/dL (<200); Glucose 98 mg/dL (74-106); HDL Cholesterol 48 mg/dL (40-60); Potassium 4.2 mmol/L (3.5-5.1); Sodium 141 mmol/L (136-145); TSH (W/Ref FT4) 1.98 uIU/mL (0.36-3.74); Triglyceride 89 mg/dL (<150)
[2020-01-22 15:14] LABS: Misc Referral (VDH) See Comments
== END 2020-01-18 04:24 ==
LOC: LBO 04:04 → LBN 12:36
PROVIDERS: PCP Family Medicine; Visit Provider Family Medicine
DX: R19.7 Diarrhea, unspecified (principal)
CPT/HCPCS: 36415; 80053; 80061; 87329; 87505; 81003; 81015; 82272; 84443; 85025

== ENCOUNTER → 2020-03-15 11:40 | Outpatient (BNVA) | payer MEDICARE, SELFPAY | PROVIDERS: PCP Family Medicine; Referring Provider Family Medicine; Visit Provider Internal Medicine Cardiovascular Disease | DX: I49.8 Other specified cardiac arrhythmias (principal); I10 Essential (primary) hypertension; G20 Parkinson's disease; R19.7 Diarrhea, unspecified | CPT/HCPCS: 99214 ==

== ENCOUNTER → 2020-08-29 09:27 | Outpatient (BNVA) | payer MEDICARE, SELFPAY | PROVIDERS: PCP Nurse Practitioner Family; Referring Provider Nurse Practitioner Family; Visit Provider Surgery | DX: R19.7 Diarrhea, unspecified (principal); Z90.49 Acquired absence of other specified parts of digestive tract | CPT/HCPCS: 99212; 99213 ==

== ENCOUNTER → 2020-11-28 08:58 | Outpatient (BNVA) | payer MEDICARE, SELFPAY | PROVIDERS: PCP Nurse Practitioner Family; Referring Provider Nurse Practitioner Family; Visit Provider Surgery | DX: R19.7 Diarrhea, unspecified (principal); Z90.49 Acquired absence of other specified parts of digestive tract | CPT/HCPCS: 99212; 99213 ==

== ENCOUNTER → 2022-01-27 02:44 | Outpatient (CLI) | payer MEDICARE, SELFPAY ==
--- NOTE | 2022-01-27 10:30 | ST.MBS ---
Date of Service Date of service: 01/27/22 Time of Service: 10:30 Modified Barium Swallow Study Findings: Video fluoroscopic Swallowing Evaluation (VFSE) / Modified Barium Swallow Study (MBSS) Speech Language Pathology Report Patient referred for VFSE/MBSS from Dr. Hosea Williamson given suspected dysphagia in setting of Parkinson's Disease. HPI & Patient report of function: Patient is an 81 year old m with parkinson's disease, conductive hearing loss, sensorineural hearing loss (bilateral), GERD with esophagitis, headache, and memory difficulties, who recently completed the SPEAK OUT! program for speech with Zoe Louisa at [facility] Speech [facility]. She recommended to perform baseline MBSS in context of Parkinson's Disease best practices and given reported s/sx consistent with mild dysphagia (occasional cough with thin liquids, globus sensation. PFSH All Active Problems? Conductive hearing loss, external ear (Acute) Sensorineural hearing loss, bilateral (Acute) Postcholecystectomy diarrhea (Acute) Lower urinary tract symptoms (LUTS) (Acute) Diverticulosis (Acute) Atrial dysrhythmia (Acute) Tremor (Acute) Actinic keratitis (Acute) SCALP Atherosclerosis of [place] coronary artery of [place] heart with unstable angina pectoris (Acute 09/23/07) 3 stents placed. 2 to RCA on 1 to Ramus Benign prostatic hyperplasia (Acute 03/25/15) Bilateral carpal tunnel syndrome (Acute 06/03/16) Bilateral low back pain (Acute 05/26/17) Bruit (Acute 02/25/98) left carotid; neg. U/S; 2002-U/S=50% stenosis Coronary atherosclerosis of [place] coronary vessel (Acute 09/23/07) Advised to restart the pravastatin since there has been no improvement in his myalgias after stopping therapy. 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 will call if blood pressure elevates and or other problems occur.Sciatica (Acute) left Shoulder pain (Acute 07/26/13) DJD Right Tubular adenoma of colon (Acute 01/06/16) Vibration sensory loss (Acute 01/01/17) Visual disturbance (Acute 06/28/17) Rupture of left long head biceps tendon (Chronic) Carpal tunnel syndrome (Acute) History of tobacco use (Acute) pipe smoker; quit 1986 Lumbar spondylosis (Acute) Medical History? CAD (coronary artery disease) Carotid artery stenosis Diverticulosis History of tobacco use pipe smoker; quit 1986 Hypertension Macular pucker, right eye PT. STATES HE HAD SURGERY TO CORRECT THIS. Surgical History? Colonoscopy - MAC (01/06/16) 2009CYSTECTOMY/BREAST childhood-removal of cyst left breast EGD - MAC (07/23/17) Extraction of cataract 01/08/14; right 07/30/16;left H/O carpal tunnel repair BILATERALH/O detached retina repair RIGHTS/P laparoscopic cholecystectomy Stent placement 10/03;angina with 3 stents IMPRESSIONS: Swallow safety is preserved; swallow efficiency is impaired. Overall swallow function appears safein setting of excellent airway protection but with Mild-moderate oral> pharyngeal dysphagia characterized primarily by poor oral clearance, slow A/P transit, and delayed pharyngeal onset of swallow, ? resulting in pooling of oral residue after the swallow in valleculae, and requiring proactive saliva swallow to reduce post-swallow residue. No penetration or aspiration occurred. Suspect dysphagia presentation due to Parkinson's Disease. Patient appears to be at low risk for potential aspiration PNA and/or pulmonary compromise and low risk for malnutrition, low risk for dehydration. Diet modification is not indicated; non-oral nutrition is not indicated. Swallow prognosis is good-fair given: Positive prognostic factors: Severity, Motivation, Family/caregiver support, Effectiveness of trialed compensatory strategies, Negative prognostic factors: Age, Cognitive status, Course of disease process and pending patient/caregiver training in risk management as outlined, including use of trialed compensatory strategies. Behavioral swallow rehabilitation is not indicated at this time, patient was provided with simple recommendations for risk management as below. Recommend repeat MBSS in 6 months Note:?Best practice indicates routine, repeat VFSS/MBSS for patients diagnosed with PD - Due to the low association between PD patients' self reported swallowing condition and actual swallowing function, either FEES or VFSS/MBSS is essential for the assessment of dysphagia in PD (Demetris & Amarilis, 2020) RECOMMENDATIONS: Diet Texture Recommendation:? IDDSI LEVEL SOLIDS 7-Regular Solids LIQUIDS 0-Thin Liquids Please see further details at?[email or web address] MEDICATIONS Whole with 0-Thin Liquids or as tolerated Diet texture modification is per patient's preference; please adjust diet textures at patient's discretion & collaboration with care team. Do not alter medications (e.g., cut)? without advice from your MD or pharmacist. Risk Management Strategies:? Behavioral reflux precautions, including upright position during + 90 mins after meals. Multiple swallows per bolus to encourage clearance of pharyngeal stasis/residue Control risk factors for aspiration pneumonia via (a) thorough oral hygiene & (b) maintaining physical mobility as tolerated PLAN: Follow-up exam: Recommend repeat VFSE/MBSS - 6 months ----- OBJECTIVE Videofluoroscopic Swallow Evaluation (VFSE/MBSS) was conducted in the lateral projection by Speech-Language Pathologist, in collaboration with Radiologist, to evaluate oropharyngeal swallow function. Anatomic view under fluoroscopy: WFL PO Barium Contrast Trials Oral barium water-soluble contrast was administered as follows: IDDSI Level 0 Varibar thin liquid (40% w/v) IDDSI Level 4 Varibar pudding/pureed/extremely thick (40% w/v) IDDSI Level 7 Regular Solid: 1/2 katelyn cracker coated in 3 mL Varibar pudding 13 mm barium tablet taken with Thin Liquids. MBSImP Component Scores: COMPONENT Scale SCORE 1 Lip closure (0-4) 0 Resulted in no labial escape 2 Hold Position (0-3) 0 Maintained a cohesive bolus between tongue to palatal seal 3 Bolus Preparation (0-4) 1 Resulted in slow prolonged chewing/mashing with complete re-collection 4 Bolus Transport (0-4) 2 Was with slowed tongue motion 5 Oral Residue (0-4) 2 Was a collection on oral structures - liquid residue with posterior escape after swallow resulting in vallecular pooling to which patient is not sensate 6 Swallow Initiation (0-4) 3 Occurred when the bolus head was in the pyriform sinuses (bolus hits valleculae and with notable delayed onset thereafter, small amount of liquid overflows and pools in pyriforms prior to initiation of pharyngeal swallow) 7 Soft Palate Elevation (0-4) 0 Resulted in no bolus between soft palate and the pharyngeal wall 8 Laryngeal Elevation (0-3) 0 Demonstrated complete superior movement of thyroid cartilage with complete approximation of arytenoids to epiglottic petiole 9 Anterior Hyoid Motion (0-2) 1 Demonstrated partial anterior movement 10 Epiglottic Movement (0-2) 0 Resulted in complete inversion 11 Laryngeal Closure (0-2) 0 Was complete with no air or contrast in laryngeal vestibule 12 Pharyngeal Stripping Wave (0-2) 0 Was present and complete 13 Pharyngeal Contraction (0-3) NA 14 PES Opening (0-3) 1 Demonstrated partial distension/partial duration, with partial obstruction of flow - noting possible segement of hypertone at proximal esophagus/PES 15 Tongue Base Retraction (0-4) 1 Allowed a trace column of contrast or air between tongue base and pharyngeal wall 16 Pharyngeal Residue (0-4) 1 Showed a trace within or on pharyngeal structures 17 Esophageal Clearance (0-4) NA Results: COMPONENT Scale SCORE 1 Oral Score (0-18) 8 2 Pharyngeal Score (0-29) 2 3 Esophageal Score (0-4) 0 Dysphagia Outcome and Severity Scale: COMPONENT Scale SCORE 1 LEVEL (1-7) 6 Full PO: Normal Diet - Within functional limits/modified independence Penetration-Aspiration Scale: COMPONENT Scale SCORE 1 Thin liquid (1-8) 1 Contrast did not enter the airway 2 [place] thick (1-8) NA 3 Honey thick (1-8) NA 4 Pudding thick (1-8) 1 Contrast did not enter the airway 5 Cookie (1-8) 1 Contrast did not enter the airway Trialed Compensatory Strategies & Outcome: Maneuvers Successful (+) Unsuccessful (-) Postures Successful (+) Unsuccessful (-) 3 second Preparatory Set? ? - Chin Tuck Posture? ? Cough? ? Posterior Head tilt? Reflexive? Cued? Throat Clear? ? Head Tilt to? Reflexive? Left? Cued? Right? ? Saliva swallow? ? + Head Turn/Rotate to? ? Supraglottic Swallow? Left? ? Super-supraglottic Swallow? Right? ? Bolus Modifications Successful (+) Unsuccessful (-) Delivery/Alternating Consistencies ? Follow with Liquid Wash ? Follow with Solid Bolus? Delivery/Via Straw? ? Reduced Volume? ? +/- Reduced Rate of Intake? ? +/- Increased Viscosity? ? Other:?? ? Thank you for allowing us to take part in this patient's care. Please feel free to contact the [facility] Speech Language Pathology Department with any questions/concerns. Coding CPT Codes MOTION FLUOROSCOPY/SWALLOW - [id number] ([id number])
--- NOTE | 2022-01-27 11:00 | DI.RAD_ITS ---
Exam(s) RF MODIFIED SPEECH BA SWALLOW TECHNIQUE: Modified barium swallow was performed in conjunction with speech pathology. CONTRAST MATERIAL: Thin, thick, and various viscus barium impregnated viscosity XXXX administered by the speech therapist. COMPARISON: No exams were available for comparison FINDINGS: Note that this is not a dedicated esophagram, distal esophagus not evaluated. There was no evidence of aspiration nor significant penetration on the present study. There was vall ecular residue noted which is coming from the oral cavity. There is mildly hypertense upper esophage al sphincter. No evidence of Zenker's diverticulum. Barium pill was rapidly swallowed/well managed and rapidly passed through the esophagus into the stom ach without holdup at any level of the esophagus. IMPRESSION: As above. No evidence of aspiration. Please also refer to speech therapist report. RADIATION DOSE DELIVERED: loretta Cresop=5.81 mGy
[2022-01-27] MEDS: Barium Sulfate 60% W/V 355 ML BTL 90 ML PO (11:13)
[2022-01-27] MEDS: Barium Sulfate 700 MG TAB PO (11:14)
[2022-01-27] MEDS: Barium Sulfate Oral Paste 40% W/V 230 ML TUBE 13 ML PO (11:14)
== END ==
PROVIDERS: PCP Nurse Practitioner Family; Visit Provider Speech-Language Pathologist
DX: G20 Parkinson's disease (principal)
CPT/HCPCS: 92611; 74221

== ENCOUNTER 2022-02-03 08:01 | Outpatient (CLI) | payer MEDICARE, SELFPAY ==
--- NOTE | 2022-02-03 08:00 | RT.EKG_ITS ---
APPROVED REPORT Exam: Resting ECG Reason for Exam: CAD Patient Location: O HR:60 bpm ECG Measurements Heart Rate 60 AXIS SD 172 P 52 QRSd 100 QRS -19 QT 432 T 19 QTc 432 Conclusion Sinus rhythm...normal P axis, V-rate 50- 99 Atrial premature complex...SV complex w/ short R-R interval
== END 2022-02-03 08:02 | disposition home or self-care (01) ==
LOC: DI.CARD 08:02
PROVIDERS: PCP Nurse Practitioner Family; Visit Provider Internal Medicine Cardiovascular Disease
DX: I25.110 Atherosclerotic heart disease of native coronary artery with unstable angina pectoris (principal); I49.8 Other specified cardiac arrhythmias; R94.31 Abnormal electrocardiogram [ECG] [EKG]; I49.1 Atrial premature depolarization
CPT/HCPCS: 93010

== ENCOUNTER → 2022-02-03 09:56 | Outpatient (BNVA) | payer MEDICARE, SELFPAY | PROVIDERS: PCP Nurse Practitioner Family; Referring Provider Family Medicine; Visit Provider Internal Medicine Cardiovascular Disease | DX: I49.8 Other specified cardiac arrhythmias (principal); Z95.5 Presence of coronary angioplasty implant and graft; I25.110 Atherosclerotic heart disease of native coronary artery with unstable angina pectoris | CPT/HCPCS: 93005; 99214 ==

== ENCOUNTER 2022-07-20 01:26 | Outpatient (CLI) | payer MEDICARE, SELFPAY ==
[2022-07-20 13:18] LABS: ALT 9 U/L (16-63); AST 17 U/L (15-37); Albumin 3.5 g/dL (3.4-5.0); Alkaline Phosphatase 58 U/L (46-116); Anion Gap 3.4 mmol/L (3-11); BUN 22 mg/dL (7-18); Bilirubin, Total 0.7 mg/dL (0.2-1.0); CO2 31.6 mmol/L (21.0-32.0); CREATININE 1.2 mg/dL (0.70-1.30); Calcium 9.4 mg/dL (8.5-10.1); Chloride 106 mmol/L (98-107); Estimated GFR 61.13 (mL/min/1.73m2); Glucose 88 mg/dL (74-106); Potassium 4.1 mmol/L (3.5-5.1); Sodium 141 mmol/L (136-145); Total Protein 6.9 g/dL (6.4-8.2)
== END 2022-07-20 01:27 | disposition home or self-care (01) ==
LOC: LOS 01:26
PROVIDERS: PCP Nurse Practitioner Family; Visit Provider Nurse Practitioner Family
DX: L29.8 Other pruritus; G20 Parkinson's disease
CPT/HCPCS: 36415; 80053

== ENCOUNTER → 2023-02-02 09:37 | Outpatient (BNVA) | payer MEDICARE, SELFPAY | PROVIDERS: PCP Nurse Practitioner Family; Visit Provider Internal Medicine Cardiovascular Disease | DX: Z95.5 Presence of coronary angioplasty implant and graft (principal); I25.110 Atherosclerotic heart disease of native coronary artery with unstable angina pectoris | CPT/HCPCS: 99213 ==

== ENCOUNTER 2023-06-14 15:22 | Outpatient (CLI) | payer MEDICARE, SELFPAY ==
--- NOTE | 2023-06-14 13:15 | DI.RAD_ITS ---
Exam(s) XR SHOULDER LT COMPLETE 2+V EXAM: XR SHOULDER LT COMPLETE 2+V CLINICAL HISTORY: LEFT SHOULDER PAIN. TECHNIQUE: 2D digital imaging was performed. Three views. COMPARISON: CR XR shoulder LT complete 2+V from 09/12/2018 MR MRI LEFT SHOULDER from 11/03/2018 FINDINGS: BONES: Spurring at acromion and humeral head. No acute fracture is present. No bony destructive lesi on is seen. JOINTS: No dislocation present. Spurring at AC joint and glenoid. Glenohumeral joint space is maint ained. SOFT TISSUE: Normal. IMPRESSION: Degenerative changes with some progression from the prior exam. DATA REPOSITORY: RADIATION DOSE DELIVERED:
== END 2023-06-14 15:23 | disposition home or self-care (01) ==
LOC: DIORS 15:22
PROVIDERS: PCP Nurse Practitioner Family; Referring Provider Nurse Practitioner Family; Visit Provider Student in an Organized Health Care Education/Training Program
DX: M75.102 Unspecified rotator cuff tear or rupture of left shoulder, not specified as traumatic (principal); M12.812 Other specific arthropathies, not elsewhere classified, left shoulder
CPT/HCPCS: 99213; 73030

== ENCOUNTER 2023-06-28 06:11 | Outpatient (CLI) | payer MEDICARE, SELFPAY ==
[2023-06-28 12:58] LABS: Calculated LDL 75 mg/dL (<100); Cholesterol 143 mg/dL (<200); HDL Cholesterol 47 mg/dL (40-60); Triglyceride 109 mg/dL (<150)
== END 2023-06-28 06:12 | disposition home or self-care (01) ==
PROVIDERS: PCP Nurse Practitioner Family; Visit Provider Nurse Practitioner Family
DX: E78.5 Hyperlipidemia, unspecified (principal)
CPT/HCPCS: 36415; 80061; 84153

== ENCOUNTER → 2023-07-02 01:10 | Outpatient (CLI) | payer MEDICARE, SELFPAY ==
--- NOTE | 2023-07-02 07:00 | DI.CT_ITS ---
Exam(s) CT UPPER EXTREMITY LT WO EXAM: CT UPPER EXTREMITY LT WO CLINICAL HISTORY: Surgery planning,rotator cuff arthropathy,m12.812 TECHNIQUE: Imaging Protocol: Axial computed tomography images with coronal and sagittal reformatted images were created and reviewed. CONTRAST MATERIAL: Intravenous: None COMPARISON: No exams were available for comparison FINDINGS: OSSEOUS/ARTICULATIONS: There is no evidence of fracture or dislocation. However, there is an element of upward subluxation of the humeral head within the osseous glenoid, approximately 1.5 cm cephalad migration with diminuti on of the subacromial space. This usually imply significant to the full-thickness rotator cuff patho logy. There are moderate degenerative changes in the glenohumeral joint. There are also significant Degenerative changes in the AC joint as well as osteophytic ridge on the undersurface of the achromiu m, most probably adding to the impingement here. There are channel findings in the lateral humeral head which are most probably consistent with prior rotator cuff surgery. No osseous lesions. IMPRESSION: Degenerative changes in the glenohumeral and AC joints. Upward subluxation of the humeral head in th e osseous glenoid fossa, indicative of rotator cuff pathology. Evidence of previous rotator cuff surgery. RADIATION DOSE DELIVERED: Total DLP DATA REPOSITORY: All CT scans at this facility are submitted to the National Radiology Data Registry (NRDR) Dose Index Registry (DIR) with the [employer] (A[employer]). RADIATION OPTIMIZATION: All CT scans at this facility use at least one of these dose optimization te chniques: automated exposure control; mA and/or kV adjustment per patient size (includes targeted exa ms where dose is matched to clinical indication); or iterative reconstruction.
== END ==
PROVIDERS: PCP Nurse Practitioner Family; Visit Provider Student in an Organized Health Care Education/Training Program
DX: M12.812 Other specific arthropathies, not elsewhere classified, left shoulder (principal); S46.092A Other injury of muscle(s) and tendon(s) of the rotator cuff of left shoulder, initial encounter
CPT/HCPCS: 73200

== ENCOUNTER → 2023-07-07 09:51 | Outpatient (BNVA) | payer MEDICARE, SELFPAY | PROVIDERS: PCP Nurse Practitioner Family; Visit Provider Student in an Organized Health Care Education/Training Program | DX: S46.112A Strain of muscle, fascia and tendon of long head of biceps, left arm, initial encounter (principal); X58.XXXA Exposure to other specified factors, initial encounter; M12.812 Other specific arthropathies, not elsewhere classified, left shoulder | CPT/HCPCS: 99214 ==

== ENCOUNTER 2023-07-27 05:54 | Outpatient (CLI) | payer MEDICARE, SELFPAY ==
[2023-07-27 18:20] LABS: PSA, Screening 2.4 ng/mL (<=6.5)
== END 2023-07-27 05:55 | disposition home or self-care (01) ==
LOC: LOS 05:54
PROVIDERS: PCP Nurse Practitioner Family; Visit Provider Nurse Practitioner Family
DX: R35.1 Nocturia (principal); Z12.5 Encounter for screening for malignant neoplasm of prostate
CPT/HCPCS: 36415; 84153

== ENCOUNTER → 2023-08-18 06:10 | Outpatient (CLI) | payer MEDICARE, SELFPAY ==
--- NOTE | 2023-08-18 06:45 | DI.US_ITS ---
Exam(s) US CAROTID EXAM: US CAROTID CLINICAL HISTORY: PRE OP,carotid artery stenosius, i65.29. TECHNIQUE: Ultrasound carotids performed using grayscale, color-flow, and spectral Doppler imaging. COMPARISON: US US ECHOCARDIOGRAM from 08/18/2023 FINDINGS: CAROTID ARTERIES: Both common carotid arteries are patent. At the right carotid bulb there is calcified posterior wall plaque without significantly elevated [place] ocities. This plaque extends into the proximal aspect of the right ICA But is also not associated with elevated velocities, indicating amount of stenosis less than 50 perce nt. Above this level the mid and upper right internal carotid artery appears unremarkable and withou t elevated velocities. Incidentally noted is abundant plaque at the origin of the right external carotid artery with signifi cantly elevated velocities implying 50-69 percent stenosis at this level. On the left side there is mild plaque in the distal common carotid artery. There is partially calcif ied plaque in the left carotid bulb and proximal left ICA but without elevated velocities, indicating the amount of stenosis is less than 50 percent. Above this level the mid upper lobe left internal c arotid arteries in the neck appear unremarkable Incidentally noted is plaque and significant elevated velocities in the left external carotid artery with peak systolic velocity 525 cm/sec, indicating greater than 70 percent stenosis. VERTEBRAL ARTERIES: Antegrade flow is demonstrated in both vertebral arteries. Measurements: R Bulb: 76.4cm/s PS / 26.1cm/s ED R CCA: 75cm/s PS / 21.9cm/s ED R ECA: 220.5cm/s PS / 32.5cm/s ED R ICA Prox: 76.6cm/s PS / 29.7cm/s ED R ICA Mid: 82.9cm/s PS / 30.3cm/s ED R ICA Distal: 98.1cm/s PS /36.6cm/s ED R Vert: 96.3cm/s PS / 28.2cm/s ED R SVR: 1.3 R DVR: 1.7 L Bulb: 73.2cm/s PS / 29cm/s ED L CCA: 62.7cm/s PS / 22.6cm/s ED L ECA: 525.2cm/s PS / 134.5cm/s ED L ICA Prox: 77.5cm/s PS / 26.1cm/s ED L ICA Mid: 92.6cm/s PS / 38.7cm/s ED L ICA Distal: 95cm/s PS / 37.5cm/s ED L Vert: 14.7cm/s PS / 4.7cm/s ED L SVR: 1.5 L DVR: 1.7 IMPRESSION: 1. There is partially calcified plaque at both carotid bulbs and proximal ICAs in the neck but withou t elevated velocities at nor distal to this level indicating amount of stenosis is less than 50 perce nt bilaterally. 2. Antegrade flow is demonstrated in both vertebral arteries. 3. Incidentally noted is abundant plaque at the origin of both EXTERNAL carotid arteries with elevate d velocities at these levels indicating stenosis of 50-69 percent on the right side and greater than 70 percent on the left side. Criteria for Carotid Stenosis: Normal: ICA PSV <125 cm/s no plaque or intimal thickening is visible. <50% stenosis: ICA PSV <125 cm/s and plaque or intimal thickening is visible. 50-69% stenosis: ICA PSV is 125-250 cm/s and plaque is visible. >70% stenosis to near occlusion: ICA PSV >250 cm/s with visible plaque and luminal narrowing. DATA REPOSITORY:
== END ==
PROVIDERS: PCP Nurse Practitioner Family; Visit Provider Student in an Organized Health Care Education/Training Program
DX: I25.110 Atherosclerotic heart disease of native coronary artery with unstable angina pectoris (principal); I65.29 Occlusion and stenosis of unspecified carotid artery
CPT/HCPCS: 93306; 93880

== ENCOUNTER 2023-08-19 06:05 | Day surgery (SDC) | payer MEDICARE, SELFPAY ==
[2023-08-19] VITALS (13 sets, daily range): BP systolic 105–139; BP diastolic 42–71; PULSE 57–65; RESP 14–20; TEMP 36.4–36.9; O2SAT 95–100; BMI 27.5
--- NOTE | 2023-08-19 06:08 | ANES.PREOP_ITS ---
General Info Date of Service Date Performed: 08/19/23 Height: 5 ft 10 in Weight: 87.09 kg Body Mass Index (BMI): 27.5 Surgical Procedure: Operation Date: 08/19/23 07:40 Proposed Procedure Side Surgeon p Shoulder Reverse Total Arthroplasty Left Cameron Mayen MD Meds Allergies and Home Medications Allergies Allergy/AdvReac Type Severity Reaction Status Date / Time clopidogrel Allergy Severe RASH Verified 08/19/23 06:15 tamsulosin AdvReac Intermediate Dizziness Verified 08/19/23 06:15 simvastatin AdvReac Unknown MUSCLE Verified 08/19/23 06:15 ACHES atorvastatin AdvReac MUSCLE Verified 08/19/23 06:15 ACHES Home Medication Medication Instructions Recorded multivitamin 1 cap PO DAILY 09/18/19 cholecalciferol (vitamin D3) 25 25 mcg PO DAILY 08/29/20 mcg (1,000 unit) capsule pravastatin 20 mg tablet 20 mg PO DAILY #90 tabs 04/01/23 carbidopa 25 mg-levodopa 100 mg 1 tab PO TID #270 tabs 06/23/23 tablet nitroglycerin 0.4 mg sublingual 0.4 mg sublingual q 5 mins prn #25 06/23/23 tablet tab-caps metoprolol tartrate 50 mg tablet 50 mg PO BID #180 tabs 07/28/23 celecoxib 200 mg capsule 200 mg PO DAILY #14 caps 08/02/23 Current Visit Medications: Current Medications Generic Name Dose Route Start Last Admin Trade Name Freq PRN Reason Stop Dose Admin Ringer's Solution 1,000 mls @ 30 mls/hr 08/19/23 06:00 IV 08/19/23 23:59 INFUSION SIMON Cefazolin Sodium/Dextrose 2 gm in 50 mls @ 100 mls/hr 08/19/23 06:00 Ancef Duplex IVPB 08/19/23 23:59 PREOP SIMON Tranexamic Acid/Sodium Chloride 1,000 mg in 100 mls @ 600 mls/hr 08/19/23 06:00 IVPB 08/19/23 23:59 PREOP SIMON IV Miscellaneous Supplies 1 each 08/19/23 06:00 Iv Access IV 08/19/23 23:59 DIRECTED SIMON Sodium Chloride 0 ml 08/19/23 06:00 Normal Saline Flush 10 Ml Syr IV 08/19/23 23:59 PRN PRN Sodium Chloride 0 ml 08/19/23 06:00 Normal Saline 10 Ml Vial IJ 08/19/23 23:59 DIRECTED PRN Sterile Water 0 ml 08/19/23 06:00 Water,Injection,Sterile 10 Ml Vial IJ 08/19/23 23:59 DIRECTED PRN PFSH Active Problems Active Problems: Problem Status Onset Code Nocturia R35.1 Rotator cuff arthropathy of left shoulder M12.812 Diarrhea R19.7 Pruritus L29.9 Left leg pain M79.605 Parkinson's disease G20 Conductive hearing loss, external ear H90.2 Sensorineural hearing loss, bilateral H90.3 Postcholecystectomy diarrhea R19.7, Z90.49 Lower urinary tract symptoms (LUTS) R39.9 Diverticulosis K57.90 Atrial dysrhythmia I49.8 Tremor R25.1 Actinic keratitis H16.139 Atherosclerosis of [place] coronary artery of [place] heart with unstable angina pectoris 09/23/07 I25.110 Benign prostatic hyperplasia 03/25/15 N40.0 Bilateral carpal tunnel syndrome 06/03/16 G56.03 Bilateral low back pain 05/26/17 M54.5 Bruit 02/25/98 R09.89 Coronary atherosclerosis of [place] coronary vessel 09/23/07 I25.10 Carotid artery stenosis 02/25/02 I65.29 Carpal tunnel syndrome of left wrist 03/25/15 G56.02 Essential hypertension 05/01/13 I10 GERD with esophagitis 08/11/17 K21.0 Headache R51 Hearing loss H91.90 Hemorrhoids K64.9 Hyperlipidemia 09/22/12 E78.5 Keratosis 03/25/15 L57.0 Malaise and fatigue 01/01/17 R53.81, R53.83 Memory problem 01/01/17 R41.3 SVT (supraventricular tachycardia) 08/05/17 I47.1 Sciatica M54.30 Shoulder pain 07/26/13 M25.519 Tubular adenoma of colon 01/06/16 D12.6 Vibration sensory loss 01/01/17 R20.8 Visual disturbance 06/28/17 H53.9 Rupture of left long head biceps tendon S46.112A Carpal tunnel syndrome G56.00 History of tobacco use Z87.891 Lumbar spondylosis M47.816 Medical History Medical History Bilateral shoulder pain Left rotator cuff tear Injected: 09/12/2018 Rotator cuff rupture, complete (10/24/14) Impacted cerumen, bilateral Macular pucker, right eye PT. STATES HE HAD SURGERY TO CORRECT THIS. History of tobacco use pipe smoker; quit 1986 Hypertension CAD (coronary artery disease) Carotid artery stenosis Diverticulosis Surgical History Surgical History S/P laparoscopic cholecystectomy H/O carpal tunnel repair BILATERAL H/O detached retina repair RIGHT Stent placement 10/03;angina with 3 stents EGD - MAC (07/23/17) Colonoscopy - MAC (01/06/16) 2009 Extraction of cataract 01/08/14; right 07/30/16;left CYSTECTOMY/BREAST childhood-removal of cyst left breast Tobacco Smoking/Tobacco Use Status: Former Tobacco Use Passive smoking exposure: Yes Second hand exposure: Yes Alcohol Alcohol Intake: current Alcohol intake frequency: a few times a week Alcohol type: beer, wine and hard liquor Substance Use Substance use: Never Substance use type: does not use Vital Signs and Lab Results Vital Signs Most Recent Vital Signs in EMR: Temp Pulse Resp BP Pulse Ox 36.5 C 58 L 16 105/53 L 100 08/19/23 06:19 08/19/23 06:19 08/19/23 06:19 08/19/23 06:19 08/19/23 06:19 Lab Results Blood Type / Crossmatch: No Data to Display Complete Blood Count: No Data to Display Complete Metabolic Panel: No Data to Display Liver Function Panel: No Data to Display Coagulation Panel: No Data to Display Cardiac Panel: No Data to Display Arterial Blood Gas: No Data to Display Venous Blood Gas: No Data to Display Pancreas Panel: No Data to Display Thyroid Panel: No Data to Display Infectious Disease: No Data to Display Blood Cultures: No Data to Display Toxicology Panel: No Data to Display Imaging and Studies Imaging and Studies Study information below may be from another EMR and interpreted by another provider. Please see original notes in EMR for more complete details. EKG Summary: 02/17: sinus. Stress Test Summary: 02/14: no evidence of stress induced ischemia on ECG. No significant ischemia on imaging. EF 46%. Echocardiogram Summary: 08/19:LVEF 50%. global hypokinesis. RV with mild dilation. AoV sclerotic without stenosis. moderate TR. Carotid Artery Summary:: 08/19: 1. There is partially calcified plaque at both carotid bulbs and proximal ICAs in the neck but without elevated velocities at nor distal to this level indicating amount of stenosis is less than 50 percent bilaterally. 2. Antegrade flow is demonstrated in both vertebral arteries. 3. Incidentally noted is abundant plaque at the origin of both EXTERNAL carotid arteries with elevated velocities at these levels indicating stenosis of 50-69 percent on the right side and greater than 70 percent on the left side. Anesthesia Assessment and Plan Anesthesia History Personal History: No History of Anesthesia Complications Family History: No Family History of Anesthesia Complications Exercise Tolerance Exercise Tolerance: Metabolic Equivalents>4 Cardiac & Pulmonary Exam Cardiac Exam: Normal S1/S2 Heart Sounds Pulmonary Exam: Clear Bilateral Breath Sounds Implantable Cardiac Device Does patient have a Pacemaker or an ICD?: No Airway Exam Known Difficult Airway: No Mallampati Class: 3 Mouth Opening: Normal (> 3cm) Thyromental Distance: Greater than 3 cm Neck Range of Motion: Full ROM Neck Circumference: Normal Teeth Condition: Normal Dentition ASA Classification ASA Score: ASA 3 Emergency Case?: No NPO Status NPO Status: NPO Clears >2 hours, Solids >8 hours Anesthesia Plan Resuscitation Status: Full Code Anesthesia Technique: General Anesthesia Airway Planned: Endotracheal Tube Pain Management: Surgeon and patient request nerve block Monitors Used: Arterial Line Preoperative Comments:: 82 yo male for reverse total shoulder. Sig PMHx: CAD/HI (3 stents), carotid artery stenosis (<50% stenosis), HTN, GERD, Parkinson's (carbidopa-levadopa), lumbar spondylosis, former smoker, occ EtOH. Previous Anes: - lap nicko, pham 2 grade 2b, easy mask. - EGD, prop, natural airway.
[2023-08-19] MEDS: Lactated Ringers 1,000 ML 30 ML IV (06:46)
--- NOTE | 2023-08-19 07:10 | W.PM.DSUDISC ---
Date of service: 08/19/23 Time of Service: 14:00 Discharge Plan Disposition Patient Disposition: Home Condition: Stable Discharge Details Attending Provider: Cameron Mayen Primary Care Provider: Hosea Williamson Home Meds and New Rx's Prescriptions: New naproxen 250 mg tablet 250 mg PO BID PRNQty: 30 0RF Rx Instructions: take with a meal aspirin 81 mg tablet,delayed release (DR/EC) 81 mg PO DAILY 7 Days Qty: 7 0RF tramadol 50 mg tablet 50 mg PO Q8H PRN (Reason: severe pain) Qty: 9 0RF Continued cholecalciferol (vitamin D3) 25 mcg (1,000 unit) capsule 25 mcg PO DAILY multivitamin Capsule 1 cap PO DAILY pravastatin 20 mg tablet 20 mg PO DAILY Qty: 90 4RF carbidopa-levodopa 25-100 mg tablet 1 tab PO TID Qty: 270 3RF nitroglycerin 0.4 mg tablet, sublingual 0.4 mg Sublingual q 5 mins prn Qty: 25 0RF metoprolol tartrate 50 mg tablet 50 mg PO BID Qty: 180 6RF Discontinued celecoxib 200 mg capsule 200 mg PO DAILY Qty: 14 0RF Discharge Instructions Additional Instructions: Surgery: Left reverse total shoulder arthroplasty (constrained liner) Activity: Do not lift anything heavier than a coffee. You should keep your arm at your side in a relatively neutral position at all times except for gentle range of motion exercises, physical therapy, and essential activities. You should use the sling whenever you are out of the house. You may have to adjust the abduction pillow or remove it for comfort. At home it is best to remove the sling and rest the arm on a pillow at your side or support the operative side with your other hand. A physical therapy prescription will be sent electronically to start in about 3 weeks. STANDARD Reverse TSA Protocol. Prescriptions: Aspirin 81 mg take 1 daily for 7 days, starting tomorrow morning Naproxen 250 mg take 1 every 12 hours with a meal as needed for moderate pain Tramadol 50 mg take 1 every 8 hours as needed for severe pain You may use [id number]-[id number] Tylenol (acetaminophen) as needed for mild pain. These pain medications may be taken all at once or in different combinations as needed. Also, recommend Colace (docusate) as a stool softener as surgery and pain medicine cause constipation. You may try [id number] diphenhydramine (Benadryl) 25-50 mg nightly as a sleep aid Dressings: Leave dressing in place until follow-up. Keep clean and dry at all times. No showers please. Follow-up: 10-[address] Mayen 08/31/2023 @ 11:00 You may take off the leg compression stockings this evening at home. You may also leave them on a few days longer if you have a history of leg swelling or edema. Please call the office during business hours with any questions or concerns. Let us know right away if you develop any redness, drainage, fevers, chest pain, or trouble breathing. Do not drink alcohol or drive for at least 24 hours after anesthesia. Stand Alone Forms: Anesthesia Discharge Inst., Brisa.Nerve Block Instructions, Savana Wagner (DSU) Discharge Orders Discharge Orders: Discharge Order (Routine); Ordered 08/19/23 Ordered By: Freddie Khan DS: Diagnosis Discharge Diagnosis (1) Rotator cuff arthropathy of left shoulder: Status: Acute
--- NOTE | 2023-08-19 07:39 | NUR.NOTE ---
Right radial arterial line placed by Juan See CRNA.Nursing Note:
[2023-08-19] MEDS: ceFAZolin 2 GM/50 ML BAG IVPB (08:06)
[2023-08-19] MEDS: TRANEXAMIC ACID/SOD. CHL. 1,000 MG/100 ML BAG 600 MG IVPB (08:12)
--- NOTE | 2023-08-19 08:13 | W.ANESNERVE ---
Nerve Block Single Injection Procedure Date and Time Date Performed: 08/19/23 Procedure Start: 07:16 Location Where Procedure Performed Procedure Location: Day Surgery Unit Reason Performed: Postoperative Analgesia Requesting Provider: Cameron Mayen Timeout Performed Timeout Performed: Yes Monitoring Used ECG, Blood Pressure, SpO2 and ETCO2 Sterility Sterility: Hand Hygiene, Surgical Cap, Surgical Mask, Sterile Gloves and Chlorhexidine Sedation Given During Procedure Sedation Given (Indicate Dose Given): Precedex IV Dose:: 8 mcg Patient Mental Status Patient Mental Status: Awake Nerve Block 1st Nerve Block: Laterality: Left Block Type: Interscalene Ultrasound Image Saved?: Yes Needle / Catheter Used: 100mm SonoPlex II Local Anesthetic Bolus (Indicate Dose Given): Lidocaine used for local infiltration of skin, Bupivacaine 0.5% Dose:: 10 mL and Exparel Dose:: 10 mL Additives (Indicate Dose Given): None Ultrasound: Sterile probe cover and gel used Nerve Stimulator: Supplement to Ultrasound use and No twitch or parasthesia noted < 0.5 mA Paresthesia: None Procedure Tolerated: No Complications Procedure Outcome: Successful Performed By: Juan Rahman
--- NOTE | 2023-08-19 08:15 | W.ANESVAS ---
Arterial Line Placement Date Performed: 08/19/23 Procedure Time: 07:28 Procedure Location: Day Surgery Unit Requesting Provider: Juan Rahman Timeout Performed: Yes Sedation Given (Indicate Dose Given): No Sedation given Patient Mental Status: Awake Sterility: Hand Hygiene, Surgical Cap, Surgical Mask, Sterile Gloves, Sterile Drape/Sheet and Chlorhexidine Laterality: Right Insertion Site: Radial Arterial Line Catheter: 20G Arrow Arterial Line Procedure: 1% Lidocaine to skin and subcutaneous tissue with 25g needle and Catheter placed without resistance Dressing: Tegaderm Applied Ultrasound: Sterile probe cover and gel used Ultrasound Image Saved?: Yes Number of Attempts (See previous attempts in note section): 1 Procedure Tolerated: No Complications and Patient tolerated well Procedure Outcome: Successful Performed By: Juan Rahman
[2023-08-19] MEDS: Bupivacaine 0.25% Pres-Free W/EPI 30 ML VIAL (08:43)
--- NOTE | 2023-08-19 10:30 | W.PM.OP ---
Date of service: 08/19/23 Time of Service: 08:00 Operative Note Operative Note DATE OF PROCEDURE: 08/19/23 PRE-OP DIAGNOSIS: Left: 1. Rotator cuff arthropathy 2. Proximal biceps rupture POST-OP DIAGNOSIS: same PROCEDURE: Left: 1. Reverse total shoulder arthroplasty, CPT # 71925 The environmental engineering assistant was medically required as this procedure involves retraction, protection of neurovascular structures, and manipulation of multiple instruments and implants at the same time, which cannot be done without a skilled environmental engineering assistant. SURGEON: Cameron Mayen PAPER CAP MACHINE OPERATOR: Freddie Khan ANESTHESIA TYPE: Local By Surgeon, General LMA/ETT and Primary Nerve Block Refer to Anesthesia Record ESTIMATED BLOOD LOSS: 75 COMPLICATIONS: None Patient was transported to: PACU Patient's condition: stable Implants: [employer] modular glenoid system baseplate 24 mm, 10 degree full augment [employer] modular glenoid system central post 25 mm [employer] modular glenoid system peripheral locking screws 40 mm inferior, 36 mm superior, 20 mm posterior, 20 mm anterior [employer] modular glenoid system glenosphere 42 +4 mm lateralized [employer] humeral stem 135 degrees size 10 [employer] suture cup size 42 posterior offset [employer] humeral insert size 42 +3 mm Constrained Indications: Please see complete medical record for details. Findings: Previous proximal biceps rupture, moderate grade partial subscapularis tearing, completely devoid supraspinatus infraspinatus with small far posterior cuff remnant. High-grade glenohumeral cartilage loss and superior humeral migration. Procedure Description: In the operating room, general anesthesia was induced. The patient was positioned beachchair on the operating room table. All bony prominences were well-padded. Preoperative antibiotics were administered. The shoulder was prepped and draped in the usual sterile fashion for shoulder arthroplasty. The correct patient, procedure, and side of the procedure were all verified prior to incision. The deltopectoral approach was preinjected with 0.25% bupivacaine containing epinephrine and taken to the anterior shoulder. Care was taken to bluntly dissect the interval between the deltoid and pectoralis major muscles and to identify the cephalic vein within its fat stripe. The the vein was mobilized laterally. Subdeltoid space and conjoined tendon were freed of adhesions. The biceps tendon was absent, but the lesser and greater tuberosities were used to identify the rotator interval. A subscapularis tenotomy was done of the remnant taking care working on bone especially inferiorly as the arm was brought into external rotation. The greater tuberosity was essentially bald and debrided of bursitis and minimal cuff remnant. Appropriate coagulation was achieved especially interiorly. The anatomic neck was cut using an oscillating saw with the humeral head bone brought back table in case there was a need for future bone grafting. The proximal humerus was delivered from the wound with adduction and external rotation. The proximal humeral protection plate was used to provisionally confirm suture cup and glenosphere size. Reamers were started appropriately posterior to the bicipital groove taking care to maintain in line approach with the humeral canal. Sequential reaming was done from size 5 up to size 8 and then up to 10 subsequently. Next, the broaches were sequentially used to open the proximal humerus starting with a size 5 and going up to size 10 and sunk to the appropriate depth while maintaining approximately 25 degrees retroversion. There was good metaphyseal fit and rotational control of the proximal humerus with this size. The posterior offset guide was used to ream for the suture cup. Attention was then turned to the glenoid and retractors were placed and a circumferential release performed using the long head of the biceps remnant to remove soft tissue about the glenoid rim. Care was taken inferiorly to work on bone only between 5 and 7:00 o'clock and bluntly elevate tissues inferiorly. The VIP guide was placed on the glenoid and used to confirm placement and trajectory of the central guidepin. The guidepin was inserted and advanced just through the far cortex ensuring adequate central fixation length. The glenoid was prepared according to supervisor cell operation specifications for a full wedge 10 degree augmented baseplate and central post. The baseplate was impacted onto the glenoid surface. The locking guide was then used to drill and place appropriately lengthed inferior, superior, anterior, and posterior screws. The [id number] reamer was used to confirm adequate peripheral reaming. The glenosphere was applied with the financial risk manager and then impacted to engage the Tobin taper. It was then locked with appropriate countersinking of the setscrew. The glenosphere was inspected and found to have good fit, appropriate positioning, and no soft tissue or bony impingement. Attention was then turned back to the proximal humerus. The humeral trial cup was connected. Trialing was commenced with +3 mm liner. The shoulder was reduced and taken through range of motion. Trial components were built up to +6 mm liner, but there was too much tension on the deltoid and conjoined tendon. The +3 mm liner was more appropriate with plans for constrained given absent rotator cuff to balance stability and soft tissue tension. The trial components were removed from the proximal humerus. The wound was copiously irrigated with normal saline. The the proximal humeral stem and suture cup were assembled and brought over the proximal humerus. A small amount of vancomycin powder was distributed in the proximal humerus. The humeral component and suture cup were impacted into place. The final +3 mm constrained liner was then connected, and range of motion, stability, and tension confirmed. The shoulder was copiously irrigated with Betadine and normal saline. Vancomycin powder was distributed deeply about the shoulder and through subcutaneous tissues. The deltopectoral interval was loosely approximated with 2-0 Monocryl burying the cephalic vein. Subcutaneous tissue was irrigated then closed using 2-0 Monocryl in a buried interrupted fashion. Skin was closed using 3-0 Monocryl in a buried subcuticular fashion. Skin glue was applied to the incision. A silver impregnated bandage was placed over the incision. The extremity was placed into a shoulder immobilizer. The patient awoke from anesthesia without complication and was taken to the recovery room in stable condition.
--- NOTE | 2023-08-19 11:06 | DI.RAD_ITS ---
Exam(s) XR SHOULDER LT COMPLETE 2+V EXAM: XR SHOULDER LT COMPLETE 2+V CLINICAL HISTORY: Reverse TSA. TECHNIQUE: 2D digital imaging was performed. COMPARISON: CR XR SHOULDER LT COMPLETE 2+V from 06/14/2023 FINDINGS: 3 postop views Satisfactory position alignment of the components of the newly placed reverse prosthesis. No fractur e or loosening evident. IMPRESSION: Satisfactory postop appearance. Incidentally noted is some mild infiltrate in the left lower lobe retrocardiac region. DATA REPOSITORY: RADIATION DOSE DELIVERED:
--- NOTE | 2023-08-19 11:09 | W.ANESPOSTOP ---
Postoperative Evaluation Date, Time and Location Date Performed: 08/19/23 Time Performed: 11:10 Patient Location: PACU Vital Signs Most Recent Imported Vital Signs: Most Recent Vital Signs Temp Pulse Resp BP Pulse Ox 36.5 C 58 L 20 106/45 L 97 08/19/23 10:50 08/19/23 10:50 08/19/23 10:50 08/19/23 10:50 08/19/23 10:50 Pain Score Most Recent Pain Score: Most Recent Pain Score Pain Level 0 08/19/23 07:24 Assessment Mental Status: Awake (Alert & Oriented to Patient Baseline) Airway and Respiratory Function: Patent airway with normal (patient baseline) respiratory exam Cardiovascular Function: Hemodynamically Stable Hydration Status: Adequately Hydrated Nausea & Vomiting: No Nausea or Vomiting Pain: Pain is tolerable per patient Peripheral Nerve Block: Regional nerve block not resolved at time of post operative discharge
[2023-08-19] MEDS: fentaNYL 100 MCG/2 ML VIAL IVP (11:22)
[2023-08-19] MEDS: ceFAZolin 1 GM/50 ML BAG IVPB (12:23)
[2023-08-19] MEDS: Lactobacillus Acidophilus CAP 1 CAP PO (12:42)
[2023-08-19] MEDS: oxyCODONE 5 MG TAB PO (12:52)
== END 2023-08-19 14:25 | disposition home or self-care (01) ==
PROVIDERS: PCP Nurse Practitioner Family; Visit Provider Student in an Organized Health Care Education/Training Program
PROC: (CPT 23472; principal; 2023-08-19 07:30)
DX: M12.812 Other specific arthropathies, not elsewhere classified, left shoulder (principal); I25.10 Atherosclerotic heart disease of native coronary artery without angina pectoris; I25.2 Old myocardial infarction; S46.112A Strain of muscle, fascia and tendon of long head of biceps, left arm, initial encounter; X58.XXXA Exposure to other specified factors, initial encounter
CPT/HCPCS: 23472; C1713; 76942; 73030; C9290; J0665; J0690; J2405; J2704; J3010

== ENCOUNTER 2023-08-31 13:08 | Outpatient (CLI) | payer MEDICARE, SELFPAY ==
--- NOTE | 2023-08-31 11:40 | DI.RAD_ITS ---
Exam(s) XR SHOULDER LT COMPLETE 2+V EXAM: XR SHOULDER LT COMPLETE 2+V CLINICAL HISTORY: F/U LEFT RTSA. TECHNIQUE: 2D digital imaging was performed. COMPARISON: CR XR SHOULDER LT COMPLETE 2+V from 08/19/2023 FINDINGS: 3 views Satisfactory position alignment of the components of the recently placed reverse shoulder prosthesis. No fracture or loosening evident. There is still some small amount of air-gas seen within the suba cromial space, significantly less than on the postop images. IMPRESSION: Satisfactory appearance DATA REPOSITORY: RADIATION DOSE DELIVERED:
== END 2023-08-31 13:09 | disposition home or self-care (01) ==
LOC: DIORS 13:09
PROVIDERS: PCP Nurse Practitioner Family; Referring Provider Nurse Practitioner Family; Visit Provider Student in an Organized Health Care Education/Training Program
DX: Z47.1 Aftercare following joint replacement surgery; Z96.612 Presence of left artificial shoulder joint
CPT/HCPCS: 73030

== ENCOUNTER → 2023-11-02 09:51 | Outpatient (BNVA) | payer MEDICARE, SELFPAY | PROVIDERS: PCP Nurse Practitioner Family; Visit Provider Student in an Organized Health Care Education/Training Program | DX: Z47.1 Aftercare following joint replacement surgery (principal); Z96.612 Presence of left artificial shoulder joint ==

== ENCOUNTER 2024-01-04 15:43 | Outpatient (CLI) | payer MEDICARE, SELFPAY ==
--- NOTE | 2024-01-04 10:30 | DI.RAD_ITS ---
Exam(s) XR SHOULDER LT COMPLETE 2+V EXAM: XR SHOULDER LT COMPLETE 2+V CLINICAL HISTORY: F/U LEFT RTSA. TECHNIQUE: 2D digital imaging was performed. COMPARISON: No exams were available for comparison FINDINGS: 3 views Stable position alignment of the components of the reverse prosthesis. No fracture or loosening evid ent. IMPRESSION: Stable satisfactory appearance DATA REPOSITORY: RADIATION DOSE DELIVERED:
== END 2024-01-04 15:44 | disposition home or self-care (01) ==
LOC: DIORS 15:43
PROVIDERS: PCP Nurse Practitioner Family; Visit Provider Student in an Organized Health Care Education/Training Program
DX: M12.812 Other specific arthropathies, not elsewhere classified, left shoulder (principal)
CPT/HCPCS: 99213; 73030

== ENCOUNTER 2024-02-01 08:01 | Outpatient (CLI) | payer MEDICARE, SELFPAY ==
--- NOTE | 2024-02-01 08:00 | RT.EKG_ITS ---
APPROVED REPORT Exam: Resting ECG Reason for Exam: SVT, CAD Patient Location: O HR:56 bpm ECG Measurements Heart Rate 56 AXIS VA 176 P 52 QRSd 97 QRS -22 QT 438 T 11 QTc 423 Conclusion Sinus rhythm...normal P axis, V-rate 50- 99 Multiple ventricular premature complexes...V complexes w/ short R-R intervls Otherwise normal ECG
== END 2024-02-01 08:02 | disposition home or self-care (01) ==
LOC: DI.CARD 08:03
PROVIDERS: PCP Nurse Practitioner Family; Visit Provider Internal Medicine Cardiovascular Disease
DX: I47.10 Supraventricular tachycardia, unspecified (principal)
CPT/HCPCS: 93010

== ENCOUNTER → 2024-02-01 09:24 | Outpatient (BNVA) | payer MEDICARE, SELFPAY | PROVIDERS: PCP Nurse Practitioner Family; Visit Provider Internal Medicine Cardiovascular Disease | DX: I49.8 Other specified cardiac arrhythmias (principal); I25.110 Atherosclerotic heart disease of native coronary artery with unstable angina pectoris | CPT/HCPCS: 93005; 99213 ==

== ENCOUNTER 2024-08-22 13:35 | Outpatient (CLI) | payer MEDICARE, SELFPAY ==
--- NOTE | 2024-08-22 11:09 | DI.RAD_ITS ---
Exam(s) XR SHOULDER LT COMPLETE 2+V EXAM: XR SHOULDER LT COMPLETE 2+V CLINICAL HISTORY: F/U LEFT RTSA. TECHNIQUE: 2D digital imaging was performed. COMPARISON: CR XR SHOULDER LT COMPLETE 2+V from 01/04/2024 FINDINGS: Three views Stable position alignment of the components of the reverse prosthesis. No fracture or loosening evid ent. No radiographic evidence of osteomyelitis. IMPRESSION: Stable satisfactory appearance DATA REPOSITORY: RADIATION DOSE DELIVERED:
== END 2024-08-22 13:36 | disposition home or self-care (01) ==
LOC: DIORS 13:36
PROVIDERS: PCP Nurse Practitioner Family; Referring Provider Nurse Practitioner Family; Visit Provider Student in an Organized Health Care Education/Training Program
DX: Z47.1 Aftercare following joint replacement surgery (principal); M12.812 Other specific arthropathies, not elsewhere classified, left shoulder
CPT/HCPCS: 99213; 73030

== ENCOUNTER 2024-12-28 13:44 | Emergency (ER) | payer MEDICARE, SELFPAY ==
[2024-12-28 13:50] VITALS: BP 173/91; PULSE 55; RESP 16; TEMP 36.3; O2SAT 96
--- NOTE | 2024-12-28 14:45 | DI.CT_ITS ---
Exam(s) CT ABDOMEN PELVIS W EXAM: CT ABDOMEN PELVIS W CLINICAL HISTORY: R. flank/abd pain. TECHNIQUE: Imaging Protocol: Axial computed tomography images with coronal and sagittal reformatted images were created and reviewed CONTRAST MATERIAL: Intravenous: Omnipaque 350 Contrast volume:75 ml Oral: no COMPARISON: CT CT THORAX ABD/PEL CTA from 02/10/2019 FINDINGS: ABDOMEN and PELVIS: Lung Bases: No acute findings. Liver: Normal density. No suspicious mass. Gallbladder and biliary tract: Cholecystectomy. No biliary dilation. Pancreas: Normal density. No abnormal calcifications or inflammatory process. No evidence of mass. Spleen: Normal. Kidneys: Normal size, contour and axis. No radiodense stones. No obstructive uropathy. Bilateral renal cysts are again noted. No suspicious masses seen. Adrenal glands: No masses seen. Vasculature: Abdominal aorta non-dilated. Atherosclerotic changes. Soft tissues: Unremarkable. Bladder: Mild wall thickening. There are several tiny calculi noted in the dependent portion of the urinary bladder. No focal mass. 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 No small bowel or colonic obstruction. No bowel wall thickening. The appendix is not visualized. The no there are no inflammatory changes at the base of the cecum. Mild diverticulosis. No evidence of diverticulitis. Normal quantity of stool. Peritoneal cavity: No ascites. No focal collection. No mesenteric inflammatory response. No free air. Bones: Degenerative changes are noted in the spine. Reproductive organs: The prostate is enlarged impresses on the base of the bladder. Lymph nodes: No pathologically enlarged lymph nodes. IMPRESSION:: No acute abnormality in the abdomen or pelvis. RADIATION DOSE DELIVERED: Total DLP DATA REPOSITORY: All CT scans at this facility are submitted to the National Radiology Data Registry (NRDR) Dose Index Registry (DIR) with the [employer] (A[employer]). RADIATION OPTIMIZATION: All CT scans at this facility use at least one of these dose optimization techniques: automated exposure control; mA and/or kV adjustment per patient size (includes targeted exams where dose is matched to clinical indication); or iterative reconstruction.
--- NOTE | 2024-12-28 14:47 | W.ED.GENAD ---
Discharge Plan Disposition Patient Disposition: Home Condition: Stable Discharge Details Clinical Impression: Acute right flank pain, Renal cyst, Bladder calculi Primary Care Provider: Hosea Williamson ED Provider: Jana Smith Home Meds and New Rx's Prescriptions: No Action cholecalciferol (vitamin D3) 25 mcg (1,000 unit) capsule 25 mcg PO DAILY carbidopa-levodopa 25-100 mg tablet 2 tab PO TID multivitamin Capsule 1 cap PO DAILY metoprolol tartrate 50 mg tablet 50 mg PO BID Qty: 180 6RF fluticasone propionate [Flonase Allergy Relief] 50 mcg/actuation spray,suspension 1 spray intranasal BID Qty: 16 3RF Rx Instructions: administer into each nostril Gemtesa 75 mg tablet 75 mg PO DAILY Qty: 90 3RF nitroglycerin 0.4 mg tablet, sublingual 0.4 mg Sublingual q 5 mins prn Qty: 25 0RF pravastatin 20 mg tablet 20 mg PO DAILY Qty: 90 4RF cholestyramine (with sugar) 4 gram powder in packet 1 packet PO DAILY Patient Comments: TAKE 1 PACKET ORALLY DAILY oxybutynin chloride 5 mg tablet 5 mg PO DAILY Patient Comments: TAKE 1 TABLET BY MOUTH DAILY Discharge Instructions Instructions: Flank Pain ED Additional Instructions: You were seen in the emergency department today for evaluation of right sided flank and abdominal pain. In our department you do full physical examination performed, and had reassuring laboratory studies. Specifically, there was no sign of electrolyte problems, infection, or blood/inflection in your urine. You had a CT scan performed that did not show any significant changes from your most recent one, though I do note that there were several very small stones in your bladder. It is certainly possible that your flank pain was due to a recently passed kidney stone. However, we cannot be certain the exact cause of your pain based on our workup in the emergency department today. As we discussed, your canning machine operator ordered an MRI to follow-up on the incidentally noted renal cysts, please complete that study as recommended. Please use therapeutic dosing of Tylenol (acetaminophen) & Advil (ibuprofen) in an alternating fashion as follows: Take 1000mg of Tylenol every 6 hours without missing doses- that is 4 times per day. Fdc in between the Tylenol doses, take 600mg of Advil also on a 6 hour schedule, that is also 4 times per day. With this strategy, you will be taking something for fever/pain as often as every 3 hours. The daily maximum dosing of Tylenol is 4000mg, and the daily maximum dosing of Advil is 2400mg. Please note that some common cold medications & prescription pain medications may contain acetaminophen and you need to read OTC drug labels and factor that in to maximum daily doses. Please follow-up with your primary care provider in the next few days to discuss this visit and any symptoms that change, worsen, or persist. You can always return to the emergency department for reevaluation, especially if you develop chest pain, shortness of breath, fever, or other symptoms that cause you concern. Thank you for allowing us to be part of your care. HPI General Mode of arrival: ambulatory. Date/Time Provider Initiated Documentation: 12/28/24 13:48. Limitations to Documentation: no limitations. Information obtained by: patient, family and old records reviewed. HPI Narrative: This is an 84-year-old male patient with a past medical history significant for Parkinson's disease, CAD, hypertension, hyperlipidemia, IBS, presenting for evaluation of right flank pain. The patient reports that he was in his normal state of health until last night, was woken from sleep with severe right flank pain that has persisted. He states that he has had musculoskeletal back problems before but this feels different, he is unable to pinpoint or palpate a specific area that is painful. He was feeling some nausea this morning, states that he used Tylenol last night and ibuprofen this morning without significant improvement. Has not had any vomiting, denies dysuria or hematuria, passed a normal stool today with no diarrhea or blood. The pain is radiating up around to his right sided abdomen. The patient had a CT abdomen pelvis with contrast at [facility] on Wednesday, which was largely reassuring though demonstrated an 11 mm cyst in his right kidney which could not be clearly defined as hemorrhagic cyst versus neoplasm. He was recommended to get an outpatient MRI of the abdomen for more clarity. The patient otherwise denies fevers, chills, chest pain, shortness of breath, recent trauma, recent medication changes. Related Data Home Medications ?Medication ?Instructions ?Recorded ?Confirmed multivitamin 1 cap PO DAILY 09/18/19 12/28/24 cholecalciferol (vitamin D3) 25 25 mcg PO DAILY 08/29/20 12/28/24 mcg (1,000 unit) capsule nitroglycerin 0.4 mg sublingual 0.4 mg sublingual q 5 mins prn #25 06/23/23 12/28/24 tablet tab-caps carbidopa 25 mg-levodopa 100 mg 2 tab PO TID 10/15/23 12/28/24 tablet pravastatin 20 mg tablet 20 mg PO DAILY #90 tabs 04/27/24 12/28/24 fluticasone propionate 50 1 spray intranasal BID #16 grams 06/22/24 12/28/24 mcg/actuation nasal spray,suspension (Flonase Allergy Relief) metoprolol tartrate 50 mg tablet 50 mg PO BID #180 tabs 06/22/24 12/28/24 vibegron 75 mg tablet (Gemtesa) 75 mg PO DAILY #90 tabs 12/06/24 12/28/24 cholestyramine (with sugar) 4 gram 1 packet PO DAILY 12/28/24 12/28/24 powder for susp in a packet oxybutynin chloride 5 mg tablet 5 mg PO DAILY 12/28/24 12/28/24 Previous Rx's ?Medication ?Instructions ?Recorded nitroglycerin 0.4 mg sublingual 0.4 mg sublingual q 5 mins prn #25 06/23/23 tablet tab-caps pravastatin 20 mg tablet 20 mg PO DAILY #90 tabs 04/27/24 fluticasone propionate 50 1 spray intranasal BID #16 grams 06/22/24 mcg/actuation nasal spray,suspension (Flonase Allergy Relief) metoprolol tartrate 50 mg tablet 50 mg PO BID #180 tabs 06/22/24 vibegron 75 mg tablet (Gemtesa) 75 mg PO DAILY #90 tabs 12/06/24 Allergies Allergy/AdvReac Type Severity Reaction Status Date / Time clopidogrel Allergy Severe RASH Verified 12/28/24 15:52 tamsulosin AdvReac Intermediate Dizziness Verified 12/28/24 15:52 simvastatin AdvReac Unknown MUSCLE Verified 12/28/24 15:52 ACHES atorvastatin AdvReac MUSCLE Verified 12/28/24 15:52 ACHES General Stated Complaint: FlankPain ALYX: 3 Exam Narrative Exam Narrative: Gen: Awake and alert, in no apparent distress HEENT: Non-icteric sclera Neck: Supple Lungs: No apparent respiratory distress, normal respiratory effort. Lung sounds clear and equal bilaterally without wheezes, rhonchi, rales CV: Appears well perfused, heart with regular rate and rhythm, strong distal pulses Abdomen: Non-distended, soft, tender to palpation in the right lower quadrant with some guarding, no rigidity or rebound. MSK: Moves 4 extremities without apparent limitation in ROM. Right flank is without tenderness to palpation, no overlying vesicular skin rash appreciated Skin: Visualized skin without rashes, cyanosis. Neuro: Normal Gait, no obvious focal deficits or facial asymmetry. Speaks in full, clear sentences. Psych: Appropriate for situation. Course Vital Signs Vital signs: Vital Signs Temperature 36.3 C L 12/28/24 13:50 Pulse 55 L 12/28/24 13:50 Respiratory Rate 16 12/28/24 13:50 Blood Pressure 173/91 H 12/28/24 13:50 Pulse Oximetry 96 12/28/24 13:50 Temperature 36.3 C L 12/28/24 13:50 Temperature Source Tympanic 12/28/24 13:50 Pulse 55 L 12/28/24 13:50 Respiratory Rate 16 12/28/24 13:50 Blood Pressure 173/91 H 12/28/24 13:50 Blood Pressure Position Sitting 12/28/24 13:50 Pulse Oximetry 96 12/28/24 13:50 Oxygen Delivery Method Room Air 12/28/24 13:50 Oxygen Flow Rate 0 12/28/24 13:50 Pain Level 8 12/28/24 13:50 Medical Decision Making This is an 84-year-old male patient presenting for evaluation of right flank pain. My differential includes but is not limited to kidney stone, UTI/pyelonephritis, certainly considered aortic pathology, though the patient's CT scan obtained just a few days ago did not show any aneurysm of the abdominal aorta, though he did have atherosclerotic calcifications. Considered hemorrhagic cyst rupture given the finding on prior CT scan. Also considered typical intra-abdominal pathology including gastritis/PUD, pancreatitis, hepatitis, appendicitis, diverticulitis, mesenteric ischemia. Will obtain labs to include CBC, CMP, magnesium, lipase, troponin, lactate, and urinalysis. I will provide the patient with Zofran and Tylenol for initial management of pain, though certainly we can escalate as needed. Unfortunately, our MRI department is not going to be able to obtain the recommended imaging for his incidental renal finding, but given the significant change in symptoms and the concerning abdominal examination I feel it reasonable to repeat his CT scan of his abdomen and pelvis at this time. - I independently interpreted the laboratory studies, which show no significant leukocytosis, anemia, or thrombocytopenia. The chemistry panel is without evidence of electrolyte abnormality, kidney dysfunction, or liver injury. INR 1.0, lactate is low at 1.7, lipase is not elevated. Urinalysis without hematuria or infectious findings. Troponin is negative and without interval increase in [address] scan reviewed by myself, shows no significant pathology, though some small bladder calculi are appreciated. Bilateral renal cysts are commented on and the patient does have an outpatient order for the MRI I recommended by his canning machine operator scheduled through that provider. I shared the findings with the patient, and on reevaluation his pain remains present but is manageable. I did provide him with a dose of Toradol. The patient reports that he is desiring to go home and manage his symptoms conservatively, and I feel that this is an appropriate and safe decision given her reassuring workup. I did academic counselor him on the diagnostic uncertainty and recommended follow-up with his outpatient providers in the next few days. At this time, the patient has had a full medical evaluation and is safe for discharge to home. They are hemodynamically stable, ambulatory, and tolerating PO. They are understanding of the follow-up plan and return precautions. They left our facility without incident. Jana Smith MD Quality:SDOH Health Related Social Needs: Health related social needs details none PFSH All Active Problems (Updated 12/28/24 @ 16:33 by Jana Smith MD) Bladder calculi (Acute) Renal cyst (Acute) Acute right flank pain (Acute) Environmental allergies (Acute) Nocturia (Acute) Rotator cuff arthropathy of left shoulder (Acute) Diarrhea (Acute) Pruritus (Acute) Left leg pain (Acute) Parkinson's disease (Chronic) Conductive hearing loss, external ear (Acute) Sensorineural hearing loss, bilateral (Acute) Postcholecystectomy diarrhea (Acute) Lower urinary tract symptoms (LUTS) (Acute) Diverticulosis (Acute) Atrial dysrhythmia (Acute) Tremor (Acute) Actinic keratitis (Acute) SCALP Atherosclerosis of [place] coronary artery of [place] heart with unstable angina pectoris (Acute 09/23/07) 3 stents placed. 2 to RCA on 1 to Ramus Benign prostatic hyperplasia (Acute 03/25/15) Bilateral carpal tunnel syndrome (Acute 06/03/16) Bilateral low back pain (Acute 05/26/17) Bruit (Acute 02/25/98) left carotid; neg. U/S; 2002-U/S=50% stenosis Coronary atherosclerosis of [place] coronary vessel (Acute 09/23/07) Advised to restart the pravastatin since there has been no improvement in his myalgias after stopping therapy. 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 will call if blood pressure elevates and or other problems occur. Sciatica (Acute) left Shoulder pain (Acute 07/26/13) DJD Right Tubular adenoma of colon (Acute 01/06/16) Vibration sensory loss (Acute 01/01/17) Visual disturbance (Acute 06/28/17) Rupture of left long head biceps tendon (Chronic) Carpal tunnel syndrome (Acute) History of tobacco use (Acute) pipe smoker; quit 1986 Lumbar spondylosis (Acute) Medical History Bilateral shoulder pain Left rotator cuff tear Injected: 09/12/2018 Rotator cuff rupture, complete (10/24/14) Impacted cerumen, bilateral Macular pucker, right eye PT. STATES HE HAD SURGERY TO CORRECT THIS. History of tobacco use pipe smoker; quit 1986 Hypertension CAD (coronary artery disease) Carotid artery stenosis Diverticulosis Surgical History History of left shoulder replacement S/P laparoscopic cholecystectomy H/O carpal tunnel repair BILATERAL H/O detached retina repair RIGHT Stent placement 10/03;angina with 3 stents EGD - MAC (07/23/17) Colonoscopy - MAC (01/06/16) 2009 Extraction of cataract 01/08/14; right 07/30/16;left CYSTECTOMY/BREAST childhood-removal of cyst left breast Family History Sister Neoplasm BREAST Son Asthma Daughter No problems noted. Daughter No problems noted. Social History Smoking/Tobacco Use Status: Former Tobacco Use tobacco type: cigarettes, pipe and cigars Quit Date: 03/29/86 Tobacco: How many years used: 15 Second Hand Exposure: Yes Smoking risk assessment performed?: Yes Alcohol Intake: current Alcohol Intake frequency: a few times a week Alcohol type: beer, wine and hard liquor Drug use: Never Substance use type: does not use Caregiver/Support person: No Household members: spouse Housing: house Do you need help understanding health information?: Never Pets and animals: No Sexually active: No Do you think of yourself as: straight/heterosexual Current gender identity: male Seatbelt use: always Drive intox or ride w/intox emergency detail driver: No Do you feel safe at home: Yes Do you feel safe in your relationship?: Yes
[2024-12-28 15:13] LABS: Abs Immature Grans 0.07 10^3/uL (0.0-0.06); HCT 42.3 % (40.0-50.0); HGB 14.5 g/dL (13.5-17.5); Immature Grans % 0.8 %; MCH 33.7 pg (27.0-33.0); MCHC 34.3 % (32.0-36.0); MCV 98 fL (80-95); MPV 10.6 fL (8.0-11.0); Platelet Count 169 10^3/uL (130-400); RBC 4.30 10^6/uL (4.36-5.78); RDW 13.1 % (11.8-14.1); RDW-SD 46.9 fL; WBC 8.71 10^3/uL (4.4-10.8)
[2024-12-28 15:16] LABS: Glucose Negative (Negative)
[2024-12-28] MEDS: Ondansetron 4 MG/2 ML VIAL IVP (15:20)
[2024-12-28] MEDS: Normal Saline Flush 10 ML SYR IVP ×3 (15:21→16:20)
[2024-12-28] MEDS: ACETAMINOPHEN 1,000 MG/100 ML BAG 400 MG IVPB (15:21)
[2024-12-28 15:38] LABS: INR 1.0 (0.9-1.1); Prothrombin Time 10.2 sec (9.1-11.1)
[2024-12-28 15:40] LABS: ALT 8 U/L (16-63); AST 20 U/L (15-37); Albumin 4.2 g/dL (3.4-5.0); Alkaline Phosphatase 74 U/L (46-116); Anion Gap 8.0 mmol/L (3-11); BUN 18 mg/dL (7-18); Bilirubin, Total 1.0 mg/dL (0.2-1.0); CO2 29.0 mmol/L (21.0-32.0); Calcium 9.1 mg/dL (8.5-10.1); Chloride 103 mmol/L (98-107); Estimated GFR 60.00 (mL/min/1.73m2); Glucose 109 mg/dL (74-106); Lipase 24 U/L (<78); Magnesium 2.1 mg/dL (1.8-2.4); Potassium 4.6 mmol/L (3.5-5.1); Sodium 140 mmol/L (136-145); Total Protein 8.0 g/dL (6.4-8.2); Troponin I 25 ng/L (<or=76)
[2024-12-28] MEDS: Omnipaque 350 MG/ML 100 ML BTL IJ (16:05)
[2024-12-28] MEDS: Normal Saline - Diluent 50 ML VIAL IJ (16:05)
[2024-12-28] MEDS: Ketorolac 15 MG/ML VIAL IVP (16:19)
[2024-12-28 16:37] LABS: Troponin I 23 ng/L (<or=76)
== END 2024-12-28 16:36 | disposition home or self-care (01) ==
PROVIDERS: Emergency Provider Emergency Medicine; PCP Nurse Practitioner Family
DX: N21.0 Calculus in bladder (principal); N28.1 Cyst of kidney, acquired; R10.31 Right lower quadrant pain
CPT/HCPCS: 36415; 80053; 83690; 96365; 96375; 99285; 74177; 81003; 83605; 83735; 84484; 85025; 85610; 99284; J0131; J1885; J2405; J3490

== ENCOUNTER → 2025-01-30 09:34 | Outpatient (BNVA) | payer MEDICARE, SELFPAY | PROVIDERS: PCP Nurse Practitioner Family; Visit Provider Internal Medicine Cardiovascular Disease | DX: I25.10 Atherosclerotic heart disease of native coronary artery without angina pectoris (principal) | CPT/HCPCS: 99213 ==